=== PATIENT | female | born 1950 | race Caucasian/White ===

== ENCOUNTER 2020-10-28 09:39 | Outpatient (CLI) | payer MEDICARE, BC, SELFPAY ==
--- NOTE | ~2020-10-28 | MM_ITS ---
EXAMINATION: MM screening michael BI w lauren HISTORY: Screening mammogram, family history of breast cancer in her mother and sister. TECHNIQUE: Craniocaudal and mediolateral oblique 3-D tomosynthesis images were obtained and synthetic 2-D images were generated. CAD analysis was submitted and interpreted. COMPARISON: 05/18/2018, 04/07/2017, 09/23/2015 BREAST PARENCHYMAL COMPOSITION: The breasts are heterogeneously dense, which may obscure small masses . FINDINGS: There is no evidence of suspicious mass, calcification, or architectural distortion to sugg est malignancy in either breast. There has been no suspicious interval change. IMPRESSION: 1. No mammographic evidence of malignancy. 2. Recommend routine screening mammography in one year. BI-RADS Category 1: Negative Reviewed, dictated and finalized at location A.
== END 2020-10-28 09:40 | disposition home or self-care (01) ==
PROVIDERS: PCP Internal Medicine; Visit Provider Obstetrics & Gynecology
DX: Z12.31 Encounter for screening mammogram for malignant neoplasm of breast (principal)
CPT/HCPCS: 77063; 77067

== ENCOUNTER 2024-02-16 09:38 | Outpatient (CLI) | payer MEDICARE, BC, SELFPAY ==
--- NOTE | ~2024-02-16 | MM_ITS ---
EXAMINATION: MM screening michael BI w lauren HISTORY: Screening TECHNIQUE: Craniocaudal and mediolateral oblique 3-D tomosynthesis images were obtained and synthetic 2-D images were generated. CAD analysis was submitted and interpreted. COMPARISON: Comparison to multiple prior studies sequentially, with oldest reviewed study dated 10/2014. BREAST PARENCHYMAL COMPOSITION: Dense: The breasts are heterogeneously dense, which may obscure small masses FINDINGS: There is no evidence of suspicious mass, calcification, or architectural distortion to sugg est malignancy in either breast. There has been no suspicious interval change. IMPRESSION: 1. No mammographic evidence of malignancy. 2. Recommend routine screening mammography in one year. BI-RADS Category 1: Negative Reviewed, dictated and finalized at location [facility] [employer]
--- OUTSIDE RECORDS SUMMARY | 2024-02-16 12:25 | XMS_ITS ---
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 Name Role Phone Alex Alvarez Primary Care Provider Dakota Ocampo [phone] Allergies No Known Allergies REASON FOR VISIT S/p LT bunionectomy Medications Medication SIG (Take, Route, Frequency, Duration) Notes Start Date End Date Status Solifenacin Succinate Active Hydroxychloroquine Sulfate Active Neuriva Active Prevagen Active Fluconazole 150 MG 3 tablets all at onc e Orally once a week for 14 days 06/09/2023 Not-Taking Centrum Adult Active Rosuvastatin Calcium Active Famotidine Active Terbinafine HCl 250 MG 1 tablet Orally O nce a day for 14 days 06/09/2023 Not-Taking Problems Problem Type SNOMED Code ICD Code Onset Dates Problem Status W/U Status Risk Notes Problem 692501079 Hallux valgus, right (M20.11) Active confirmed Problem Acquired hammer toe of right foot (9819414601141 105) Hammertoe of right foot (M20.41) Active confirmed Vital Signs Height 62 in 07/07/2023 Weight 160 lbs 07/07/2023 BMI 29.26 kg/m2 07/07/2023 Encounters Encounter Location Date Provider Diagnosis 1 [facility] [address] [place] [address] 07/07/2023 Dakota Wharton Hallux valgus (acquired), left foot M20.12 ; Hallux valgus, right M20.11 ; Hammertoe of right foot M20.41 ; Onychomycosis B35.1 and Toe pain, right M79.674 Assessments Encounter Date Diagnosis (ICD Code) Assessment Notes Treatment Notes Treatment Clinical Notes Section Notes 07/07/2023 Hallux valgus (acquired), left foot (ICD-10 - M20.12) Although patient still has a signifciant hallux valgus deformity and 2nd hammertoe contracture, she admits overall improvement compared to her initial pre-operative pain. She has virtually no pain when wearing sandals but reports pain mostly when wearing her tennis shoes. I advised her swelling will continue to improve with time but recommended she consider purchasing a 4E width shoe. I discussed additional surgery if she continues to have pain but reminded patient that due to her poor bone quality secondary to RA that Lapiplasty would not be a good option due to risk of nonunion. We could consider lópez arthroplasty but jose is still fairly active. For now I encouraged patient to try wider shoes and resume activities as tolerated. Pt to follow up as needed for this problem. 07/07/2023 Hallux valgus, right (ICD-10 - M20.11) Surgery was discussed but patient advised she may have less than ideal results similar to her LT foot due to limitation of procedures we can perform due to poor bone quality secondary to RA. Patient will hold off on surgery as long as possible. 07/07/2023 Hammertoe of right foot (ICD-10 - M20.41) 07/07/2023 Onychomycosis (ICD-10 - B35.1) Advised no further medication needed at this point but patient should monitor the nail as it grows back and contact our office if any concerns of fungus, otherwise no follow up needed for this condition. 07/07/2023 Toe pain, right (ICD-10 - M79.674) Discussed tx options for bunion pain including conservative and surgical options. Discussed importance of wearing the correct size shoe and avoiding tight shoes. Discussed oral and topical pain meds and shoe orthotics. Discussed option of steroid injection but advised this would provide only temporary relief if the bunion continues to be irritated by shoes. Recommended trying nonsurgical before considering surgery but advised sometimes surgery is necessary to relieve the pain. Pt will consider surgical options and will let us know if she wants to move forward. Plan Of Treatment Treatment Notes Assessment Notes Hallux valgus (acquired), left foot Alth ough patient still has a signifciant hallux valgus deformity and 2nd hammertoe contracture, she admits overall improvement compared to her initial pre-operative pain. She has virtually no pain when wearing sandals but reports pain mostly when wearing her tennis shoes. I advised her swelling will continue to improve with time but recommended she consider purchasing a 4E width shoe. I discussed additional surgery if she continues to have pain but reminded patient that due to her poor bone quality secondary to RA that Lapiplasty would not be a good option due to risk of nonunion. We could consider lópez arthroplasty but jose is still fairly active. For now I encouraged patient to try wider shoes and resume activities as tolerated. Pt to follow up as needed for this problem. Hallux valgus, right Surgery was discuss ed but patient advised she may have less than ideal results similar to her LT foot due to limitation of procedures we can perform due to poor bone quality secondary to RA. Patient will hold off on surgery as long as possible. Onychomycosis Advised no further m edication needed at this point but patient should monitor the nail as it grows back and contact our office if any concerns of fungus, otherwise no follow up needed for this condition. Toe pain, right Discussed tx options for bunion pain including conservative and surgical options. Discussed importance of wearing the correct size shoe and avoiding tight shoes. Discussed oral and topical pain meds and shoe orthotics. Discussed option of steroid injection but advised this would provide only temporary relief if the bunion continues to be irritated by shoes. Recommended trying nonsurgical before considering surgery but advised sometimes surgery is necessary to relieve the pain. Pt will consider surgical options and will let us know if she wants to move forward. Next Appt Details Follow Up: Contact office if condition fails to improve , otherwise RTO PRN with any other concerns, Reason: Progress Notes * Don STEARNSOB: 2 (72 yo F)Acc No.[id number]:07/07/2023 Progress Notes Patient:?Kirsten STEARNS Provider:?Summer Wharton DPM :1950???Age:72 Y???Sex:Female D ate:07/07/2023 Address:[address] [place] [address] Pcp:ME Ewa Subjective: * Chief Complaints: * ???S/p LT bunionectomy * HPI: ???MA assisting with visit::?HPI/Rooming:?Cindy.?Primary reason for visit::?Date of surgery: ?02/09/2023.?Surgery procedures performed: ?Left foot: scarf bunionectomy, Abebe osteotomy of hallux, 2nd toe hammertoe repair by PIPJ arthrodesis, 2nd MPJ open reduction of dislocation, 3rd MPJ capsulotomy.?Pain level: ?Left foot:, she still has some discomfort where her scar is, she rates this as???04/15.? 72 y/o female RTO 5 months s/p LEFT foot scarf bunionectomy. At the last appt the pt was dispensed a gel bunion cushion and advised to continue with PT. . She reports that she still has some discomfort from her sx scar and if she extends the toe it will hurt but the PT definitely helped.? ?Today the pt reports that she does wear this cushion and it is effective at keeping her toes from pressing together uncomfortably but the cushion itself is not the most comfortable, she only wears this with tennis shoes.?? Pt states she still is concerned about her LT 2nd?toe overlapping the 3rd toe, she has tried the toe taping as Dr. Wharton directed, which does help. She also states she continues to have numbness to the distal 3rd toe and she is wondering if this will ever go away.? Patient also RTO for f/u onychomycosis, at the last appt the patient had a total nail avulsion to T5 and was prescribed a two-week course of terbinafine to be followed by a 2-week course of fluconazole.? Today the patient reports that she took both of the medications as directed, which she tolerated well,?and she is having no issues in healing. She still hs a small scab but she expected this. * Medical History:? * Surgical History:?RT leg vas cular sx - venous * Hospitalization/Major Diagno stic Procedure:? * Medications:?TakingPrevagen Neuriva Hydroxychloroquine Sulfate Solifenacin Succinate Rosuvastatin Calcium Centrum Adult Famotidine Taking Prevagen Taking Neuriva Taking Hydroxychloroquine Sulfate Taking Solifenacin Succinate Taking Rosuvastatin Calcium Taking Centrum Adult Taking Famotidine Not-Taking/PRNTerbinafine HCl 250 MG Tablet 1 tablet Orally Once a day Fluconazole 150 MG Tablet 3 tablets all at once Orally once a week Medication List reviewed and reconciled with the patientNot-Taking/PRN Terbinafine HCl 250 MG Tablet 1 tablet Orally Once a day Not-Taking/PRN Fluconazole 150 MG Tablet 3 tablets all at once Orally once a week Medication List reviewed and reconciled with the patient * Allergies:?N.K.D.A.no[Allerg ies Verified] Objective: * Vitals:?Wt:160lbs, Wt-k .57 kg, Ht: 62 in, BMI:29.26Index. * Examination: ???General Examination: ?Constitutional / Appearance: ?No acute distress , Well nourished, Appropriate personal hygiene.?Mental status: ?Cooperative, Oriented to person, place and time, Mood and affect: normal, Judgement and intellect: normal with appropriate response to questions.?Shoes today:?Thong flip flops.?Exam unchanged from prior visit:?RT hallux nail bed appears healed with stable eschar present but no drainage or SOI noted.?? LT foot continues to exhibit hallux valgus with the 2nd toe noted to override both the hallux and 3rd toe.? There is bony prominence noted to the medial 1st MTH with mild erythema and tenderness with palpation.? The scar tissue contracture of the dorsal 2nd MPJ appears more supple compared to prior visits. No pain with palpation of plantar forefoot and no plantar callus noted.?? The RT foot exhibits a severe hallux valgus and 2nd digit hammertoe contracture with erythema noted to dorsal 2nd toe PIPJ but no callus.? There mild tenderness with palpation of the plantar 2nd MPJ..? Assessment: * Assessment: 1.?Hallux valgus (acquired), left foot - M20.12 (Primary)?2.?Hallux valgus, right - M20.11?3.?Hammertoe of right foot - M20.41?4.?Onychomycosis - B35.1?5.?Toe pain, right - M79.674? Plan: * Treatment: 2.?Hallux valgus, right? Notes: Surgery was discussed but patient advised she may have less than ideal results similar to her LT foot due to limitation of procedures we can perform due to poor bone quality secondary to RA. Patient will hold off on surgery as long as possible. ?? 3.?Onychomycosis? Notes: Advised no further medication needed at this point but patient should monitor the nail as it grows back and contact our office if any concerns of fungus, otherwise no follow up needed for this condition. ?? 4.?Toe pain, right? Notes: Discussed tx options for bunion pain including conservative and surgical options. Discussed importance of wearing the correct size shoe and avoiding tight shoes. Discussed oral and topical pain meds and shoe orthotics. Discussed option of steroid injection but advised this would provide only temporary relief if the bunion continues to be irritated by shoes. Recommended trying nonsurgical before considering surgery but advised sometimes surgery is necessary to relieve the pain. Pt will consider surgical options and will let us know if she wants to move forward.?? * Procedure Codes:? * Preventive Medicine:? 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 At the last appt the pt was dispensed a gel bunion cushion and advised to continue with PT. . She reports that she still has some discomfort from her sx scar and if she extends the toe it will hurt but the PT definitely helped. Today the pt reports that she does wear this cushion and it is effective at keeping her toes from pressing together uncomfortably but the cushion itself is not the most comfortable, she only wears this with tennis shoes. Pt states she still is concerned about her LT 2nd toe overlapping the 3rd toe, she has tried the toe taping as Dr. Wharton directed, which does help. She also states she continues to have numbness to the distal 3rd toe and she is wondering if this will ever go away. Patient also RTO for f/u onychomycosis, at the last appt the patient had a total nail avulsion to T5 and was prescribed a two-week course of terbinafine to be followed by a 2-week course of fluconazole. Today the patient reports that she took both of the medications as directed, which she tolerated well, and she is having no issues in healing. She still hs a small scab but she expected this. Pain level: Left foot:, she stil l has some discomfort where her scar is, she rates this as 04/15 Date of surgery: 02/09/2023 AMAIRANI assisting with visit: HPI/Rooming: Cindy Examination Category Sub-Category Detail Notes Category Not es General Examination Mental status: Cooperative, Oriented to person, place and time, Mood and affect: normal, Judgement and intellect: normal with appropriate response to questions Shoes today: Thong flip flops Exam unchanged from prior visit: RT max ux nail bed appears healed with stable eschar present but no drainage or SOI noted. LT foot continues to exhibit hallux valgus with the 2nd toe noted to override both the hallux and 3rd toe. There is bony prominence noted to the medial 1st MTH with mild erythema and tenderness with palpation. The scar tissue contracture of the dorsal 2nd MPJ appears more supple compared to prior visits. No pain with palpation of plantar forefoot and no plantar callus noted. The RT foot exhibits a severe hallux valgus and 2nd digit hammertoe contracture with erythema noted to dorsal 2nd toe PIPJ but no callus. There mild tenderness with palpation of the plantar 2nd MPJ. Constitutional / Appearance: No acute di stress , Well nourished, Appropriate personal hygiene
--- OUTSIDE RECORDS SUMMARY | 2024-02-16 12:26 | XMS_ITS | Patient Health Record ---
Author Organization 1 OF Tom ashford [facility] Address [address] [place] [address] Care Team Providers Care Outsole Caser Name Role Phone Alex Alvarez Primary Care Provider Dakota Ocampo Unavailable Allergies No Known Allergies Reason For Referral No Information Medications Medication SIG (Take, Route, Frequency, Duration) Notes Start Date End Date Status Solifenacin Succinate Active Hydroxychloroquine Sulfate Active Centrum Adult Active Rosuvastatin Calcium Active Neuriva Active Prevagen Active Famotidine Active Fluconazole 150 MG 3 tablets all at onc e Orally once a week for 14 days 06/09/2023 Not-Taking Terbinafine HCl 250 MG 1 tablet Orally O nce a day for 14 days 06/09/2023 Not-Taking Social History Tobacco Use: Social History Observation Description Date Details (start date - stop date) Never Smoker NA - NA Tobacco Use/Smoking Question Answer Notes Are you a nonsmoker Problems Problem Type SNOMED Code ICD Code Onset Dates Problem Status W/U Status Risk Notes Problem [id number] Hallux valgus (acquired), left foot (M20.12) Active confirmed Problem Hallux valgus of left foot (1185531618) Hallux valgus of left foot (M20.12) Active confirmed Problem 905553003 Hallux valgus, right (M20.11) Active confirmed Problem 922862565 Hammer toe of right foot (M20.41) Active confirmed Problem 391299349 Hammer toe of left foot (M20.42) Active confirmed Problem Acquired hammer toe of right foot (4430882769753793) Hammertoe of right foot (M20.41) Active confirmed Problem 6160824304567684 Arthritis of foot, left (M19.072) Active confirmed Problem 9627150997640539 Arthritis of foot, right (M19.071) Active confirmed Problem Acquired left hallux valgus due to metatarsus primus varus (disorder) (34466006985743314) Acquired hallux valgus with metatarsus primus varus of left foot (Q66.212) Active confirmed Problem 13979863784041281 Rheumatoid arthritis involving both feet, unspecified whether rheumatoid factor present (M06.9) Active confirmed Vital Signs Height 62 in 07/07/2023 Weight 160 lbs 07/07/2023 BMI 29.26 kg/m2 07/07/2023 Encounters Encounter Location Date Provider Diagnosis 1 OF Tom Wharton [facility] [address] [place] [id number] 02/23/2023 Christopher Dio Hallux valgus of left foot M20.12 ; Surgical aftercare, musculoskeletal system Z47.89 ; Dislocation of metatarsophalangeal joint of toe, subsequent encounter S93.129D ; Acquired deformity of left toe M20.62 and Hammer toe of left foot M20.42 1 OF Tom Wharton [facility] [address] [place] [id number] 03/02/2023 Christopher Dio Hallux valgus of left foot M20.12 ; Surgical aftercare, musculoskeletal system Z47.89 ; Dislocation of metatarsophalangeal joint of toe, subsequent encounter S93.129D ; Acquired deformity of left toe M20.62 and Hammer toe of left foot M20.42 1 OF Tom Wharton [facility] [address] [place] [id number] 03/17/2023 Christopher Dio Hallux valgus of left foot M20.12 ; Surgical aftercare, musculoskeletal system Z47.89 ; Dislocation of metatarsophalangeal joint of toe, subsequent encounter S93.129D ; Acquired deformity of left toe M20.62 ; Hammer toe of left foot M20.42 ; Onychomycosis B35.1 ; Encounter for long-term (current) use of other medications Z79.899 and Swelling of left foot M79.89 1 OF Tom Newman [facility] [address] [place] [address] 03/21/2023 Dakota Wharton Hallux valgus of left foot M20.12 ; Surgical aftercare, musculoskeletal system Z47.89 ; Dislocation of metatarsophalangeal joint of toe, subsequent encounter S93.129D ; Acquired deformity of left toe M20.62 ; Hammer toe of left foot M20.42 ; Onychomycosis B35.1 ; Encounter for long-term (current) use of other medications Z79.899 and Swelling of left foot M79.89 1 OF Tom Newman [facility] [address] [place] [address] 04/07/2023 Barberophsegundo Wharton Hallux valgus of left foot M20.12 ; Surgical aftercare, musculoskeletal system Z47.89 ; Dislocation of metatarsophalangeal joint of toe, subsequent encounter S93.129D ; Acquired deformity of left toe M20.62 ; Hammer toe of left foot M20.42 ; Foot pain, right M79.671 ; Foot pain, left M79.672 and Hallux valgus (acquired), right foot M20.11 1 OF Trent [facility] [address] [place] [address] 05/09/2023 Dakota Wharton Dislocation of metatarsophalangeal joint of toe, subsequent encounter S93.129D ; Surgical aftercare, musculoskeletal system Z47.89 ; Hammer toe of left foot M20.42 and Hallux valgus (acquired), left foot M20.12 1 OF Trent [facility] [address] [place] [address] 06/09/2023 Dakota Wharton Hallux valgus (acquired), left foot M20.12 ; Surgical aftercare, musculoskeletal system Z47.89 ; Hammer toe of left foot M20.42 and Onychomycosis B35.1 1 OF [facility] [address] [place] [address] 07/07/2023 Dakota Wharton Hallux valgus (acquired), left foot M20.12 ; Hallux valgus, right M20.11 ; Hammertoe of right foot M20.41 ; Onychomycosis B35.1 and Toe pain, right M79.674 1 OF Tom Wharton [facility] [address] [address] 02/21/2023 Dakota Wharton 1 OF Tom Wharton [facility] [address] [facility] [address] [place] [address] 03/16/2023 Dakota Wharton Assessments Encounter Date Diagnosis (ICD Code) Assessment Notes Treatment Notes Treatment Clinical Notes Section Notes 02/23/2023 Hallux valgus of lef t foot (ICD-10 - M20.12) 03/02/2023 Hallux valgus of lef t foot (ICD-10 - M20.12) 03/17/2023 Hallux valgus of lef t foot (ICD-10 - M20.12) 03/21/2023 Hallux valgus of lef t foot (ICD-10 - M20.12) 04/07/2023 Hallux valgus of lef t foot (ICD-10 - M20.12) 05/09/2023 Dislocation of metatarsophalangeal joint of toe, subsequent encounter (ICD-10 - S93.129D) 06/09/2023 Hallux valgus (acquired), left foot (ICD-10 - M20.12) Discussed the recurrence of the hallux valgus deformity and bunion cushion with gel payable manager was dispensed to pt today and pt was advised to experiment with positioning the cushion to find the position that works best. Pt advised to continue with PT, but to remove cushion when at PT. Discussed potential need for additional surgery if the condition continues to bother her but reminded patient of her poor bone quality that would limit the options as far as an osteotomy is concerned. Recommended surgery only as a last resort. Pt will f/u with the office in 1 month. 07/07/2023 Hallux valgus (acquired), left foot (ICD-10 [...] Hammertoe of right foot (ICD-10 - M20.41) 06/09/2023 Surgical aftercare, musculoskeletal system (ICD-10 - Z47.89) 06/09/2023 Hammer toe of left foot (ICD-10 - M20.42) 04/07/2023 Dislocation of metatarsophalangeal joint of toe, subsequent encounter (ICD-10 - S93.129D) 05/09/2023 Surgical aftercare, musculoskeletal system (ICD-10 - Z47.89) Pt advised that non-sx options include physical therapy, but was also advised that another procedure may be necessary if physical therapy fails to provide relief. Pt was advised that swelling will take time to go down, especially since she is unable to wear compression stockings. Pt was given order for PT. Pt was recommended Dr. Villalpando's bunion cushion with spacer, although these will need to be ordered. For the swelling, forefoot compression sleeve was dispensed. 05/09/2023 Hammer toe of left foot (ICD-10 - M20.42) 04/07/2023 Surgical aftercare, musculoskeletal system (ICD-10 - Z47.89) Patient was advised that her swelling will continue to go down with time but she will still have her lump feeling for some time in the ball of the foot. She can gradually increase her activity as tolerated but avoid any high impact activity. f/u in 4 weeks 03/17/2023 Dislocation of metatarsophalangeal joint of toe, subsequent encounter (ICD-10 - S93.129D) 03/17/2023 Surgical aftercare, musculoskeletal system (ICD-10 - Z47.89) 03/21/2023 Surgical aftercare, musculoskeletal system (ICD-10 - Z47.89) 03/02/2023 Surgical aftercare, musculoskeletal system (ICD-10 - Z47.89) Both surgical pins were removed from the surgical site. Pt was advised to wait a few days before showering. Pt was advised to allow the bandage strips to come off on their own. Pt advised that post surgical swelling will reduce overtime. Bandage was applied to openings from which pins were removed. Surgical shoe dispensed today. Patient advised she can wear surgical shoe or cam walker boot but must wear one or the other with all WB activity. Continue to RICE. She may d/c the naproxen if no pain. f/u in 2 weeks 02/23/2023 Surgical aftercare, musculoskeletal system (ICD-10 - Z47.89) Pt's x-rays were compared to her last visit today, and I informed her she appears to have a little less edema than last time. All of pt's sutures were removed today and steri-strips were placed. Pt's LT 2nd/3rd toes were also dressed with DSD and bandaids. 1/2 felt padding placed in posterior 3/4 of her CAM walker boot to offload the forefoot which patient reported immediately felt better to her. Pt advised to continue offloading in her boot as much as possible. Pt advised that she cannot get her foot wet until her pins are removed but may apply a light bandage around the toes to change periodically. Pt also advised she may apply lotion to the area around her incision site and abx ointment like Neosporin around the tips of the pins when changing her dressing. Pt will f/u on 03/02/2023. 02/23/2023 Dislocation of metatarsophalangeal joint of toe, subsequent encounter (ICD-10 - S93.129D) 03/17/2023 Acquired deformity o f left toe (ICD-10 - M20.62) 03/02/2023 Dislocation of metatarsophalangeal joint of toe, subsequent encounter (ICD-10 - S93.129D) 03/21/2023 Dislocation of metatarsophalangeal joint of toe, subsequent encounter (ICD-10 - S93.129D) 04/07/2023 Acquired deformity o f left toe (ICD-10 - M20.62) 05/09/2023 Hallux valgus (acquired), left foot (ICD-10 - M20.12) 06/09/2023 Onychomycosis (ICD-1 0 - B35.1) Pt was advised that fungal infection is likely too dense to be penetrated by medication. Pt was advised that infection can likely only be cleared by removal of the nail followed by 2 week treatment of fluconazole, and then 2 week treatment of terbinafine. Pt will f/u with the office as scheduled for P/O. 07/07/2023 Onychomycosis (ICD-1 0 - B35.1) Advised no further medication needed [...] know if she wants to move forward. 04/07/2023 Hammer toe of left foot (ICD-10 - M20.42) 03/21/2023 Acquired deformity o f left toe (ICD-10 - M20.62) 03/02/2023 Acquired deformity o f left toe (ICD-10 - M20.62) 03/17/2023 Hammer toe of left foot (ICD-10 - M20.42) Evaluation today included a review of medical history, review of systems, discussion of exam findings, and review of diagnoses and treatment options. Recommended a possible in-office tenotomy of the 3rd digit to keep the digit from tash and to lessen the pain the pt is experiencing. Discussed the procedure and healing times, adressed all pt questions and concerns, and let her know that she will not be able to get the foot wet until after her F/U appt next week. Pt agreed to proceed with a tenotomy today in-office/ Pt is to continue wearing her surgical shoe with all WB. 02/23/2023 Acquired deformity o f left toe (ICD-10 - M20.62) 02/23/2023 Hammer toe of left foot (ICD-10 - M20.42) 03/17/2023 Onychomycosis (ICD-1 0 - B35.1) I reviewed the diagnosis and treatment plan with the patient and advised the condition seems not to be improving. I recommended switching to oral terbinafine, taken one week per month for an additional 3 months 03/02/2023 Hammer toe of left foot (ICD-10 - M20.42) 03/21/2023 Hammer toe of left foot (ICD-10 - M20.42) Pt's incision site was cleansed with alcohol today. Pt advised to keep her steri-strips on and allow them to fall off over time. Pt dispensed compression socks today. Pt also advised to purchase supportive shoes with a stiffer sole and bring them to her next f/u visit on 04/07/2023. 04/07/2023 Foot pain, right (ICD-10 - M79.671) 04/07/2023 Foot pain, left (ICD-10 - M79.672) 03/21/2023 Onychomycosis (ICD-1 0 - B35.1) 03/17/2023 Encounter for long-term (current) use of other medications (ICD-10 - Z79.899) 03/17/2023 Swelling of left lauren t (ICD-10 - M79.89) 03/21/2023 Encounter for long-term (current) use of other medications (ICD-10 - Z79.899) 04/07/2023 Hallux valgus (acquired), right foot (ICD-10 - M20.11) Patient's left foot bunion is progressing well but she still has a significant bunion on the RT foot that will eventually need surgery. Until she can have surgery of the RT foot I recommended she try a much wider shoe than she is currently wearing. Patient was counseled on brands that carry wider shoe styles, such as [employer] shoes. Patient's feet were measured using a [facility] device, I reccomended a 4E width to accomodate the RT foot bunion. Pt was reminded that even with bunion surgery the width of her foot could only be decreased so much, and she still has a wide foot and her LT foot would benefit from a wider shoe as well. Pt expressed understanding and plans to buy a wider shoe. Pt was advised to wear her sx shoe or to wear her current shoes if they are tolerable until she can purchase wider shoes. Pt was given a [employer] store coupon. Pt was also shown gel bunion cushions that she could wear in the meantime for the discomfort on her medial hallux MPJ's. 03/21/2023 Swelling of left lauren t (ICD-10 - M79.89) 06/09/2023 Other Plan Of Treatment No Information Insurance Providers Payer Name Payer Address Payer Phone Subscriber Number Group Number Insured Name Patient Relationship to Insured Coverage Start Date Coverage End Date Medicare [address] [facility] [place] [id number] Kirsten Montejo Self - patient is the insured [facility] [address] [address] [place], [place] [id number] Kirsten Montejo Self - patient is the insured Medical (General) History Medical History History ICD Code arthritis, hyperlipidemia, r heumatoid arthritis, vein problems, Lupus- cutaneous Surgical History Surgery Date(Month/Year) RT leg vascular sx - venous
--- OUTSIDE RECORDS SUMMARY | 2024-02-16 12:26 | XMS_ITS ---
Author Organization 1 OF Tom ashford [facility] Address [address] [facility] [address] [place] [address] Care Team Providers Care Telephone Lineman Name Role Phone Alex Alvarez Primary Care Provider Dakota Ocampo Unavailable Allergies No Known Allergies REASON FOR VISIT LT foot scarf bunionectomy Medications Medication SIG (Take, Route, Frequency, Duration) Notes Start Date End Date Status Solifenacin Succinate Active Hydroxychloroquine Sulfate Active Famotidine Active Rosuvastatin Calcium Active Centrum Adult Active Neuriva Active Prevagen Active Terbinafine HCl 250 MG 1 tablet Orally O nce a day for 14 days 06/09/2023 Active Fluconazole 150 MG 3 tablets all at onc e Orally once a week for 14 days 06/09/2023 Active Vital Signs Height 62 in 06/09/2023 Weight 160 lbs 06/09/2023 BMI 29.26 kg/m2 06/09/2023 Encounters Encounter Location Date Provider Diagnosis 1 OF Tom Wharton [facility] [address] [id number] 06/09/2023 Dakota Wharton Hallux valgus (acquired), left foot M20.12 ; Surgical aftercare, musculoskeletal system Z47.89 ; Hammer toe of left foot M20.42 and Onychomycosis B35.1 Assessments Encounter Date Diagnosis (ICD Code) Assessment Notes Treatment Notes Treatment Clinical Notes Section Notes 06/09/2023 Hallux valgus (acquired), left foot (ICD-10 - M20.12) Discussed the recurrence of the hallux valgus deformity and bunion cushion with gel crown buffer was dispensed to pt today and pt [...] f/u with the office in 1 month. 06/09/2023 Surgical aftercare, musculoskeletal system (ICD-10 - Z47.89) 06/09/2023 Hammer toe of left foot (ICD-10 - M20.42) 06/09/2023 Onychomycosis (ICD-10 - B35.1) Pt was advised that fungal infection is likely too dense to be penetrated by medication. Pt was advised that infection can likely only be cleared by removal of the nail followed by 2 week treatment of fluconazole, and then 2 week treatment of terbinafine. Pt will f/u with the office as scheduled for P/O. 06/09/2023 Other Plan Of Treatment Medication Medication Name Sig Start Date Stop Date Notes Terbinafine HCl 250 MG 1 tablet Orally O nce a day for 14 days 06/09/2023 Fluconazole 150 MG 3 tablets all at onc e Orally once a week for 14 days 06/09/2023 Treatment Notes Assessment Notes Hallux valgus (acquired), left foot Disc ussed the recurrence of the hallux valgus deformity and bunion cushion with gel crown buffer was dispensed to pt today and pt [...] f/u with the office in 1 month. Onychomycosis Pt was advised that fungal infection is likely too dense to be penetrated by medication. Pt was advised that infection can likely only be cleared by removal of the nail followed by 2 week treatment of fluconazole, and then 2 week treatment of terbinafine. Pt will f/u with the office as scheduled for P/O. Next Appt Details Follow Up: 4 Weeks, Reason: Procedure Notes * Category Sub-Category Detail Notes NAIL PROCEDURES: Nail avulsion (35356): Discusse d procedure and associated recovery period as well as potential risks and complications including, but not limited to recurrence of ingrown toenail, infection, worsening of condition, loss of entire toenail, loss of digit. Advised potential need for resection hypertrophic periungual tissue to help prevent recurrence of the condition. No guarantees given. Patient agreed to proceed with procedure consisting of: total nail avulsion of: T5 . Consent form reviewed and signed by patient / guardian. Local anesthesia obtained with 4cc , 50/50 mixture, 0.25% marcaine plain, 1% lidocaine plain., Aseptic prep of the toe(s) performed with betadine and following confirmation of anesthesia, , Avulsion procedure performed utilizing sterile instrumentation and atraumatic technique with resection of any hypertrophic granulation tissue as necessary. , The wound was then irrigated with betadine. Bacitracin ointment and DSD was applied to the wound and post-op instructions were dispensed and discussed. STERILE TRAY & INSTRUMENTS Utilization o f sterile tray and instrumentation along with aseptic technique. (A4550) Progress Notes * Don STEARNSOB: 2 (72 yo F)Acc No.[id number]:06/09/2023 Progress Note Patient:Kirsten COX Provider:David Wharton DPM :1950???Age:72 Y???Sex:Female D ate:06/09/2023 Address:[address] [place] [address] Pcp:ME Ewa Subjective: * Chief Complaints: * ???LT foot scarf bunionectom y * HPI: ???MA assisting with visit::?HPI/Rooming:?Anusha.?Primary reason for visit::?Date of surgery: ?02/09/2023.?Surgery procedures performed: ?Left foot: scarf bunionectomy, Abebe osteotomy of hallux, 2nd toe hammertoe repair by PIPJ arthrodesis, 2nd MPJ open reduction of dislocation, 3rd MPJ capsulotomy.?Pain level: ?Left foot: 3/10?at worst, 0/10?today.?72 y/o female RTO 17 weeks s/p LEFT foot surgery. At last visit pt was given order for PT and a gel bunion cushion with a spacer was supposed to be ordered. Pt also had compression sleeve dispensed. Pt reports she thinks that physical therapy has helped with the pain and she will have her 8th session today. Pt rpeorts she has pain when the foot swells, and when she is on the foot more. Pt reports she thinks the bunion cushion helps to keep the scar from getting irritated. Pt reports she was wondering about the other bunion cushion that was supposed to be ordered. Pt reports she wears the compression sleeve at home and likes it, but sometimes it gets too tight so she has to remove it. Pt also RTO for f/u of nail fungus. At last visit pt was given refill for terbinafine. Today the pt reports there has not been much improvement.? ?She denies any ASE with the medication. * Medical History:? * Medications:?TakingPrevagen Neuriva Hydroxychloroquine Sulfate Solifenacin Succinate Rosuvastatin Calcium Centrum Adult Famotidine Taking Prevagen Taking Neuriva Taking Hydroxychloroquine Sulfate Taking Solifenacin Succinate Taking Rosuvastatin Calcium Taking Centrum Adult Taking Famotidine DiscontinuedTerbinafine HCl 250 MG Tablet 1 tablet Orally once daily for 7 days in a row, then stop. Repeat 1 week of every month as directed Medication List reviewed and reconciled with the patientDiscontinued Terbinafine HCl 250 MG Tablet 1 tablet Orally once daily for 7 days in a row, then stop. Repeat 1 week of every month as directed Medication List reviewed and reconciled with the patient * Allergies:?N.K.D.A.no[Allerg ies Verified] Objective: * Vitals:?Wt:160lbs, Wt-k .57 kg, Ht: 62 in, BMI:29.26Index. * Examination: ???General Examination: ?Constitutional / Appearance: ?No acute distress , Well nourished, Appropriate personal hygiene.?Mental status: ?Cooperative, Oriented to person, place and time, Mood and affect: normal, Judgement and intellect: normal with appropriate response to questions.?Shoes today:?tennis shoe.?Exam unchanged from prior visit:?The LT 2nd toe continues to exhibit a mild dorsal contracture that overrides both the hallux and 3rd toe.? There does appear to be less scar tissue contracture at the dorsal 2nd MPJ but still some limited plantarflexion is noted due to contracture.? There remains a bony prominence at the medial 1st MPJ w/ mild erythema and lateral contracture of the hallux. No pain or crepitus with ROM of the hallux. The RT hallux nail plate continues to exhibit evidence of onychomycosis with longitudinal spikes of nail fungus at the medial and lateral margins of the nail plate.? Remaining nails of both feet appear clear of fungus..?Diagnostic Studies: : ?X-rays of left lower extremity:?3 views of left foot: , Fixation appears stable with no change in position, evidence of loosening or fracture., No change in alignment of osteotomy is noted, Bone consolidation appears excellent. Hallux valgus with bony prominence of the medial 1st MTH is noted. , Otherwise no other acute changes compared to prior x-rays.? Assessment: * Assessment: 1.?Hallux valgus (acquired), left foot - M20.12?2.?Surgical aftercare, musculoskeletal system - Z47.89 (Primary)?3.?Hammer toe of left foot - M20.42?4.?Onychomycosis - B35.1? Plan: * Treatment: 2.?Onychomycosis? Start Terbinafine HCl Tablet, 250 MG, 1 tablet, Orally, Once a day, 14 days, 14 Tablet, Refills 0;?Start Fluconazole Tablet, 150 MG, 3 tablets all at once, Orally, once a week, 14 days, 6, Refills 0.?? Notes: Pt was advised that fungal infection is likely too dense to be penetrated by medication. Pt was advised that infection can likely only be cleared by removal of the nail followed by 2 week treatment of fluconazole, and then 2 week treatment of terbinafine. Pt will f/u with the office as scheduled for P/O. ?? * Procedures:?NAIL PROCEDURES::?Nail avulsion (48441): ?Discussed procedure and associated recovery period as well as potential risks and complications including, but not limited to recurrence of ingrown toenail, infection, worsening of condition, loss of entire toenail, loss of digit. Advised potential need for resection hypertrophic periungual tissue to help prevent recurrence of the condition. No guarantees given. Patient agreed to proceed with procedure consisting of:? total nail avulsion of: T5?. Consent form reviewed and signed by patient / guardian. Local anesthesia obtained with 4cc , 50/50 mixture, 0.25% marcaine plain, 1% lidocaine plain., Aseptic prep of the toe(s) performed with betadine and following confirmation of anesthesia, , Avulsion procedure performed utilizing sterile instrumentation and atraumatic technique with resection of any hypertrophic granulation tissue as necessary. , The wound was then irrigated with betadine. Bacitracin ointment and DSD was applied to the wound and post-op instructions were dispensed and discussed..?STERILE TRAY & INSTRUMENTS?Utilization of sterile tray and instrumentation along with aseptic technique. (A4550).? * Procedure Codes:?27677 X-RAY FOOT (3 views), [place]: [place] [address] REMOVAL OF NAIL PLATE, Modifiers: T5 * Follow Up:?4 Weeks * Images: Drawin R T foot photo * Sign off status: Completed true * Provider:?Summer Wharton DPM Date:?0 06/09/2023 Generated for Saira martinez/Sofia/Tomeritting on:?02/16/2024 12:25 PM DELIVERY PROFESSIONAL History and Physical Notes * HPI (History of Present Illness) Category Sub-Category Detail Notes Category Not es Primary reason for visit: Surgery procedures performed: Left foot: scarf bunionectomy, Abebe osteotomy of hallux, 2nd toe hammertoe repair by PIPJ arthrodesis, 2nd MPJ open reduction of dislocation, 3rd MPJ capsulotomy 72 y/o female RTO 17 weeks s/p LEFT foot surgery. At last visit pt was given order for PT and a gel bunion cushion with a spacer was supposed to be ordered. Pt also had compression sleeve dispensed. Pt reports she thinks that physical therapy has helped with the pain and she will have her 8th session today. Pt rpeorts she has pain when the foot swells, and when she is on the foot more. Pt reports she thinks the bunion cushion helps to keep the scar from getting irritated. Pt reports she was wondering about the other bunion cushion that was supposed to be ordered. Pt reports she wears the compression sleeve at home and likes it, but sometimes it gets too tight so she has to remove it. Pt also RTO for f/u of nail fungus. At last visit pt was given refill for terbinafine. Today the pt reports there has not been much improvement. She denies any ASE with the medication. Pain level: Left foot: 3/10 at w orst, 0/10 today Date of surgery: 02/09/2023 MA assisting with visit: HPI/Rooming: Anusha Examination Category Sub-Category Detail Notes Category Not es General Examination Mental status: Cooperative, Oriented to person, place and time, Mood and affect: normal, Judgement and intellect: normal with appropriate response to questions Shoes today: tennis shoe Exam unchanged from prior visit: The LT 2nd toe continues to exhibit a mild dorsal contracture that overrides both the hallux and 3rd toe. There does appear to be less scar tissue contracture at the dorsal 2nd MPJ but still some limited plantarflexion is noted due to contracture. There remains a bony prominence at the medial 1st MPJ w/ mild erythema and lateral contracture of the hallux. No pain or crepitus with ROM of the hallux. The RT hallux nail plate continues to exhibit evidence of onychomycosis with longitudinal spikes of nail fungus at the medial and lateral margins of the nail plate. Remaining nails of both feet appear clear of fungus. Constitutional / Appearance: No acute di stress , Well nourished, Appropriate personal hygiene Diagnostic Studies: X-rays of left lower extremity: 3 views of left foot: , Fixation appears stable with no change in position, evidence of loosening or fracture., No change in alignment of osteotomy is noted, Bone consolidation appears excellent. Hallux valgus with bony prominence of the medial 1st MTH is noted. , Otherwise no other acute changes compared to prior x-rays
--- OUTSIDE RECORDS SUMMARY | 2024-02-16 12:26 | XMS_ITS | Data Portability ---
Author Organization [facility] KAITLINKatie Catarina Address [address] [place] [address] Care Team Providers Care Knife Machine Operator Name Role Phone MORIS WONG Primary Care Provider [phone] Assessment Encounter Date Assessment Date Assessment LastModified by Organization Details LastModified Time 08/15/2023 08/15/2023 continue current therapy orthopedic referral diagnosis and assessment and plan discussed and questions referable those diagnosis discussed follow up with me in 4-6 months. Obtain old records to complete database for screenings and immunizations Not available 09/09/2023 22:20:27 01/31/2024 01/31/2024 healthy lifestyl e care instructions urinary incontinence continue with her medication dyslipidemia rosuvastatin. Rheumatoid arthritis hydroxychloroquine with meloxicam. GERD famotidine. Obtain Cologuard report obtain mammogram report follow up with me in 4-6 months continue current therapy [email or web address] Not available 02/03/2024 13:21:21 Plan of Treatment Reminders Order Date Submit Date Provider Last Modified By Organization Details Last Modified Time Details Appointments ANY 15 2024 10:00A Emerita Wong MD Not available Not available Not available Lab CBC w/ auto diff 2023 024 [facility], [address] [facility], [address], [place], [address], 02/15/2024 06:47:07 lipid panel, serum 2023 024 [facility], [address] [facility], [address], [place], [address], 02/15/2024 06:47:05 CMP, serum or plasma 2023 [facility], [address], [address], [place], [address], 02/15/2024 06:47:06 Referral orthopedi c surgeon referral 2023 024 MA[facility]OL Walker MD, [address] [facility], [place], [address], 09/05/2023 07:54:10 Procedures None recorded. Surgeries None recorded. Imaging MAMMO, screening , digital, bilateral 2023 [facility], [address] [address], [place], [address], 02/16/2024 11:16:52 Medication Orders None recorded. Patient TargetsNo targets recorded. Patient Instructions Encounter Date Encounter Id Patient Instructions Last Modified By Organization Details Last Modified Time 01/31/2024 [id number] A healthy lifestyle: care instructions [email or web address] Not available 01/31/2024 12:16:08 Reason for Referral Orthopedic Surgeon Referral for Pain of left shoulder joint Referring Physician: Moris Wong, Internal Medicine, Encounter Date: 08/15/2023 Results Created Date Observation Date Name Description Value Unit Range Abnormal Flag Note LastModifiedBy Organization Detail LastModifiedTime 02/02/2005/18/2018 jeni VIRGEN digit al, bilat eral No observ ation record ed. [facility] [address] [facility] [address], [address], 02/05/2024 11:06:14 02/16/2002/16/2024 jeni VIRGEN digit al, bilat eral No observ ation record ed. [facility] [address], [place], [address], 02/16/2024 11:16:52 02/16/2002/16/2024 MAMMO , scree derek, digit al, bilat eral No observ ation record ed. [address], [place], [address], 02/16/2024 12:15:28 Result Notes None recorded. Problems Name Problem SNOMED Code Status Onset Date Resolution Date Notes Provider Name and Address Organization Details Recorded Time Pain of left shoulder joint 6177086483966 9109 Active 2023 Pascual Marsh MA null, [place] - [facility] 4 10:27:44 Hyperlipide lenny 20629593 Active 2023 Moris Wong MD Attn: Jake treviño,[address] [facility], [place], [address], [place] - [facility] 4 22:19:42 Rheumatoid arthritis 62568607 Active 2023 Moris Wong MD Attn: Jake treviño,[address] [place], [address], [place] [facility] 4 22:19:43 Urinary incontinenc e 780580847 Active 2023 Moris Wong MD Attn: Jake treviño,[address] [facility], [place], [address], [place] - [facility] 4 22:19:44 Gastroesoph ageal reflux disease without esophagitis 143091474 Active 2023 Moris Wong MD Attn: Jake treviño,[address] [place], [address], [place] - [facility] 13:19:54 Problem Notes None recorded. Procedures Surgical History None recorded. Imaging Results Imaging Date Name Status LastModified by Organiz ation Details LastModified Time 05/18/2018 MAMMO, screening, digital, bilateral completed [address] [facility] [address], [place], [address], 02/05/2024 11:06:14 02/16/2024 MAMMO, screening, digital, bilateral active [address] [facility] [address], [place], [address], 02/16/2024 11:16:52 02/16/2024 MAMMO, screening, digital, bilateral active [facility] [address], [place], [address], 02/16/2024 12:15:28 Procedure Notes None recorded. Medical Equipment None Reported. Allergies No known drug allergies Medications Name Sig Start Date Stop Date Status Note LastModified by Organization Details LastModified Time azithromyci n 250 mg tablet 06/13 completed Not Available Not Available Not Available fluconazole 150 mg tablet TAKE 3 TABLETS BY MOUTH ALL AT ONCE ONCE A WEEK 08/14 completed Not Available Not Available Not Available hydrocodone 5 mg-acetamin ophen 325 mg tablet TAKE 1 TO 2 TABLETS BY MOUTH EVERY 6 HOURS AFTER SURGERY NEEDED FOR MODERATE PAIN AFTER SURGERY OR PAIN 06/13 completed Not Available Not Available Not Available meloxicam 15 mg tablet TAKE 1 TABLET BY MOUTH EVERY DAY active Not Available Not Available No t Available famotidine 40 mg tablet TAKE 1 TABLET BY MOUTH ONCE DAILY active Not Available Not Available No t Available doxycycline monohydrate 100 mg tablet TAKE 1 TABLET BY MOUTH EVERY 12 HOURS FOR 7 DAYS 06/13 completed Not Available Not Available Not Available mycophenola te mofetil 500 mg tablet TAKE 2 TABLETS BY MOUTH TWICE DAILY 08/14 completed Not Available Not Available Not Available terbinafine HCl 250 mg tablet TAKE 1 TABLET BY MOUTH DAILY FOR 14 DAYS 08/14 completed Not Available Not Available Not Available methotrexat e sodium 2.5 mg tablet 08/14 completed Not Available Not Available Not Available hydroxychlo roquine 200 mg tablet active Not Available Not Available No t Available naproxen 500 mg tablet TAKE 1 TABLET BY MOUTH EVERY 12 HOURS FOR AT LEAST 14 DAYS AFTER SURGERY 08/14 completed Not Available Not Available Not Available rosuvastati n 20 mg tablet TAKE 1 TABLET DAILY active Not Available Not Available No t Available solifenacin 10 mg tablet TAKE 1 TABLET DAILY active Not Available Not Available No t Available aspirin PRN active Not Available Not Avail able Not Available Vitals Date Recorded Body height Body mass index (BMI) Body weight Heart rate Oxygen saturation Oxygen saturation in Arterial blood by Pulse oximetry Systolic blood pressure Diastolic blood pressure Provider Name and Address Organization Details Last Updated DateTime 06/11/202 4 157.48 cm 30.3 kg/m2 13835.6 1 g 87 /min 97 % 97 % 118 mm[Hg] 72 mm[Hg] Fina Frias MA [facility] 4 09:56:09 Date Recorded Body height Provider Name an d Address Organization Details Last Updated DateTime 01/31/2024 157.48 cm Jerilyn LozanoAMAIRANI [facility] 01/31/2024 11:02:03 Date Recorded Body mass index (BMI) Body weight Heart rate Oxygen saturation Oxygen saturation in Arterial blood by Pulse oximetry Systolic blood pressure Diastolic blood pressure Provider Name and Address Organization Details Last Updated DateTime 4 30.7 kg/m2 07135.5 2 g 90 /min 96 % 96 % 118 mm[Hg] 70 mm[Hg] Surekha Hunter MA [facility] 4 11:15:11 Social History Question Answer Notes LastModified by Organizat ion Details LastModified Time Tobacco Smoking Status Never Smoker Fina Frias MA null, [facility] 08/15/2023 09:53:57 Do You Have An Advance Directive? No Information n ot available 01/31/2024 What Is Your Level Of Alcohol Consumption? Occasional Information not available 08/15/2023 Are You Blind Or Do You Have Difficulty Seeing? No Information n ot available 08/15/2023 In The 14 Days Before Symptom Onset, Have You Had Close Contact With A Laboratory-confirm ed COVID-19 While That Case Was Ill? No Information n ot available 01/31/2024 In The 14 Days Before Symptom Onset, Have You Had Close Contact With A Person Who Is Under Investigation For COVID-19 While That Person Was Ill? No Information not available 01/31/2024 Have You Been To An Area Known To Be High Risk For COVID-19? No Information not available 01/31/2024 Are You Currently Employed? No Information not available 01/31/2024 Are You Deaf Or Do You Have Serious Difficulty Hearing? No Information not available 08/15/2023 What Type Of Diet Are You Following? REGULAR Information n ot available 01/31/2024 Are There Any Guns Present In Your Home? No Information not available 01/31/2024 What Was The Date Of Your Most Recent Tobacco Screening? 01/31/2024 Information not available 01/31/2024 What Is Your Relationship Status? Information not available 08/15/2023 Do You Use Your Seat Belt Or Car Seat Routinely? Yes Information not available 01/31/2024 Do You Have Smoke And Carbon Monoxide Detectors In Your Home? Yes Information not available 01/31/2024 Do You Use Any Illicit Or Recreational Drugs? No Information not available 01/31/2024 Do You Use Sunscreen Routinely? No Information not available 01/31/2024 Sex: Female Functional Status Question Answer Note LastModified by Organization D etails LastModified Time Are you able to care for yourself? Yes Information n ot available 08/15/2023 Mental Status None recorded. Family History Nothing Reported. Medical History Condition Response Kidney or Bladder Problems Y High Cholesterol Y Gynecological HistoryNo gynecological history recorded. Obstetrics History GPAL:G 0 P 0 0 0 0 Past Encounters Encounter ID Performer Location Encounter Start Date Encounter Closed Date Diagnosis/Indication Diagnosis SNOMED-CT Code Diagnosis ICD10 Code [id number] Moris Wong MD [facility]) [address] [place] [address] 08/15/2023 09:43:15 08/15/2023 10:36:32 Pain of left shoulder joint 4867371807 3191521 M25.512 Hyperlipidemia 45399217 E78.5 Rheumatoid arthritis 698 45157 M06.9 Urinary incontinence 165 911273 R32 History of cerebrovascular accident 306154975 Z86.73 [id number] Moris Wong MD [facility]) [address] [place] [address] 01/31/2024 11:00:19 01/31/2024 11:54:06 Body mass index 30+ - obesity 013309676 Z68.30 Obesity 062806784 E66.9 Screening mammography 24 791211 Z12.31 Hyperlipidemia 43234988 E78.5 Long-term drug therapy 260415804 Z79.891 Health Concerns Section Related Observation LastModified by Organization Detai ls LastModified Time None Recorded Concern Status LastModified by Organization Details LastModified Time None Recorded Advance Directives Directive N: Payers Encounter Date Sequence Insurance Name Policy Number Policy Patel Covered Member ID Patel Member ID Guarantor Name 08/15/2023 1 [place] Kirsten Cholevik [id number] Kirsten Cholevik 08/15/2023 2 [place] [id number] Kirsten Cholevik [id number] Kirsten Cholevik 01/31/2024 1 [place] Kirsten Cholevik [id number] Kirsten Cholevik 01/31/2024 2 [place] [id number] Kirsten Cholevik [id number] Kirsten Cholevik Notes Date Note Type Note Provider Name and Address Organization Details Recorded Time 08/15/2023 text/html 73-year-old with history of hyperlipidemia stroke and rheumatoid arthritisshe has been taking her rosuvastatin without any side effects trying to follow a low-fat diet. She has been taking her medications from rheumatology as well and seemed to be stable does have some urinary incontinence and that has been responsive to her medication and she has had some pain in her left shoulder for several months now no trauma or surgeries or above her head Moris Wong MD Attn: [address] [place], [address], [facility] 09/09/2023 22:20:46 01/31/2024 text/html urinary incontin ence is doing fine. Dyslipidemia taking rosuvastatin without any problems rheumatoid arthritis relatively stable GERD no nausea no vomiting no heartburn Moris Wong MD Attn: [address] [facility], [place], [address], [place] 02/03/2024 13:21:44 OBGyn Episode No OBEpisode recorded.
--- OUTSIDE RECORDS SUMMARY | 2024-02-16 12:26 | XMS_ITS | Continuity of Care Document ---
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 Rheumatoid arthritis hydroxychloroquine with meloxicam. GERD famotidine. Obtain Cologuard report obtain mammogram report follow up with me in 4-6 months continue current therapy Not available 02/03/2024 13:21:21 Plan of Treatment Reminders Order Date Submit Date Provider Last Modified By Organization Details Last Modified Time Details Appointments ANY 15 2024 10:00A Emerita Wong MD Not available Not available Not available Lab CBC w/ auto diff 2023 024 [facility], [address] [facility] [address], [place], [address], 02/15/2024 06:47:07 lipid panel, serum 2023 024 [facility], [address] [facility] [address], [address], [place], [address], 02/15/2024 06:47:05 CMP, serum or plasma 2023 024 [facility], [address] [facility] [address], [address], [place], [address], 02/15/2024 06:47:06 Referral None recorded. Procedures None recorded. Surgeries None recorded. Imaging MAMMO, screening , digital, bilateral 2023 024 [facility], [address], [place], [address], 02/16/2024 11:16:52 Medication Orders None recorded. Patient TargetsNo targets recorded. Patient Instructions Encounter Date Encounter Id Patient Instructions Last Modified By Organization Details Last Modified Time 01/31/2024 [id number] A healthy lifestyle: care instructions [email or web address] Not available 01/31/2024 12:16:08 Reason for Referral None Reported. Results Created Date Observation Date Name Description Value Unit Range Abnormal Flag Note LastModifiedBy Organization Detail LastModifiedTime 02/02/20 24 05/18/2018 MAMMO , scree derek, digit al, bilat eral No observ ation record ed. [address] [facility], [place], [address], 02/05/2024 11:06:14 02/16/20 24 02/16/2024 MAMMO , scree derek, digit al, bilat eral No observ ation record ed. [address] [address], [place], [address], 02/16/2024 11:16:52 02/16/20 24 02/16/2024 MAMMO , scree derek, digit al, bilat eral No observ ation record ed. [address] [facility], [place], [address], 02/16/2024 12:15:28 Result Notes None recorded. Problems Name Problem SNOMED Code Status Onset Date Resolution Date Notes Provider Name and Address Organization Details Recorded Time Pain of left shoulder joint 1196367169914 9109 Active 2023 Pascual Marsh MA [facility], [place] - [facility] 10:27:44 Hyperlipide lenny 73728589 Active 2023 Moris Wong MD Attn: Jake treviño,[address] [facility], [place], [address], [place] - [facility] 4 22:19:42 Rheumatoid arthritis 85686794 Active 2023 Moris Wong MD Attn: Jake treviño,[address] [facility], [place], [address], [place] [facility] 4 22:19:43 Urinary incontinenc e 345776062 Active 2023 Moris Wong MD Attn: Jake treviño,[address] [facility], [place], [address], [place] [facility] 4 22:19:44 Gastroesoph ageal reflux disease without esophagitis 362303490 Active 2023 Moris Wong MD Attn: Jake treviño,[address] [facility], [place], [address], [place] - [facility] 4 13:19:54 Problem Notes None recorded. Medical Equipment None Reported. [...] Not Available Vitals Date Recorded Body height Provider Name an d Address Organization Details Last Updated DateTime 01/31/2024 157.48 cm Jerilyn Lozano MA [facility] 01/31/2024 11:02:03 Date Recorded Body mass index (BMI) Body weight Heart rate Oxygen saturation Oxygen saturation in Arterial blood by Pulse oximetry Systolic blood pressure Diastolic blood pressure Provider Name and Address Organization Details Last Updated DateTime 30.7 kg/m2 32170.5 2 g 90 /min 96 % 96 % 118 mm[Hg] 70 mm[Hg] Surekha Hunter MA [facility] 11:15:11 Social History Question Answer Notes LastModified by Organizat ion Details LastModified Time Tobacco Smoking Status Never Smoker Fina Frias MA [facility], [facility] 08/15/2023 09:53:57 Do You Have An Advance [...] Diagnosis/Indication Diagnosis SNOMED-CT Code Diagnosis ICD10 Code [id number] MD [facility] ([facility]ult [facility]) [address] [place] [address] 01/31/2024 11:00:19 01/31/2024 11:54:06 Body mass index 30+ - obesity 866404785 Z68.30 Obesity 453872176 E66.9 Screening mammography 24 819674 Z12.31 Hyperlipidemia 22910146 E78.5 Long-term drug therapy 579683940 Z79.891 Health Concerns Section Related Observation LastModified by Organization Detai ls LastModified Time None Recorded Concern Status LastModified by Organization Details LastModified Time None Recorded Payers Encounter Date Sequence Insurance Name Policy Number Policy Patel Covered Member ID Patel Member ID Guarantor Name 01/31/2024 1 [place] Kirsten Montejo [id number] Kirsten Montejo 01/31/2024 2 [place] [id number] Kirsten Montejo [id number] Kirsten Montejo Notes Date Note Type Note Provider Name and Address Organization Details Recorded Time 01/31/2024 text/html urinary incontinence is doing fine. Dyslipidemia taking rosuvastatin without any problems rheumatoid arthritis relatively stable GERD no nausea no vomiting no heartburn Moris Wong MD Attn: Accounting[address] [facility], [place], [address], [facility] 02/03/2024 13:21:44 OBGyn Episode No OBEpisode recorded.
--- OUTSIDE RECORDS SUMMARY | 2024-02-16 12:26 | XMS_ITS ---
Author Organization 1 OF Tom ashford D[facility] Address [address] [facility] [address] [place] [address] Care Team Providers Care Clinical Applications Manager Name Role Phone Alex Alvarez Primary Care Provider Dakota Ocampo REASON FOR VISIT Nail fungus tx w/ oral terbinafine Encounters Encounter Location Date Provider Diagnosis [facility] [address] [address] 06/16/2023 Dakota Wharton Plan Of Treatment No Information Progress Notes * Don STEARNSOB: (73 yo F)Acc No.[id number]:06/16/2023 Progress Notes Patient:?Kirsten STEARNS Provider:?Summer Wharton DPM :1950???Age:72 Y???Sex:Female D ate:06/16/2023 Address:[address] [place], [place] [id number] Pcp:ME Ewa Subjective: * Chief Complaints: * ???1. Nail fungus tx w/ oral terbinafine. * Medical History:? Objective: * Vitals:? Assessment: Plan: * Treatment: * Images: * Electronic signature of Liban Wharton DPM on 02/16/2024 at 12:25 PM SALOONKEEPER Sign off status: Pending * Provider:?Summer Wharton DPM Date:?0 06/16/2023 Generated for Saira martinez/Sofia/Tomeritting on:?02/16/2024 12:25 PM SALOONKEEPER
== END 2024-02-16 09:39 | disposition home or self-care (01) ==
LOC: ANHIMG 09:40
PROVIDERS: PCP Internal Medicine; Visit Provider Internal Medicine
DX: Z12.31 Encounter for screening mammogram for malignant neoplasm of breast (principal)
CPT/HCPCS: 77063; 77067

== ENCOUNTER 2024-05-16 14:00 | Outpatient (CLI) | payer MEDICARE, BC, SELFPAY ==
--- NOTE | ~2024-05-16 | DEXA_ITS ---
Bone Density Report Name: NEVIN STEARNS Age: 73 Sex: Female Ethnicity: White Date of : 1950 Indication: postmenopausal; screening for osteoporosis; height loss; rheumatoid arthritis; Referring Provider: UNKNOWN, UNKNOWN Study: Bone densitometry was performed. Exam Date: May 16, 2024 Accession number: [id number] Bone Density: Region BMD T-score Z-score Classification AP Spine(L1-L4) 0.751 -2.7 -0.4 Osteoporosis Femoral Neck (Left) 0.631 -2.0 0.0 Osteopenia Total Hip (Left) 0.785 -1.3 0.4 Osteopenia Femoral Neck (Right) 0.550 -2.7 -0.7 Osteoporosis Total Hip (Right) 0.744 -1.6 0.0 Osteopenia Total Hip Mean 0.765 -1.5 0.2 Osteopenia World Health Organization criteria for BMD impression classify patients as: Normal (T-score at or above -1.0), Osteopenia (T-score between -1.0 and -2.5), or Osteoporosis (T-score at or below -2.5). 10-year Fracture Risk: FRAX not reported because: Some T-score for Spine Total or Hip Total or Femoral Neck at or below -2.5 Clinical Information Provided by Patient: Has rheumatoid arthritis Patient maximum height was 63 Menopause Age: 53 No regular weight bearing exercise Drinks caffeinated beverages Onset of menses at age 15 Number of children 3 Impression: The patient has osteoporosis, based on the Total Spine T-score. Discussion: INCREASED RISK OF FRACTURE. BONE DENSITY IS UNDESIRABLY LOW AT ONE OR MORE SKELETAL SITES, CONSISTENT WITH POSTMENOPAUSAL OSTEOPOROSIS. This patient's lowest T-score meets the World Health Organization's (WHO) criteria for osteoporosis at one or more sites (T-score -2.5 or below). In untreated patients, the risk of osteoporotic fracture increases approximately two-fold for each 1.0 SD decrease in T-score. Low bone density is not the only risk factor for fracture; also consider factors such as patient's age, frailty or poor health, risk of falling, risk of injury, previous osteoporotic fracture, family history of osteoporosis, cigarette smoking, low body weight, etc. Not everyone with low bone mineral density has osteoporosis; osteomalacia and other metabolic bone disorders should also be considered. Patients who have osteoporosis should be evaluated for specific diseases and conditions (secondary causes) that may cause or contribute to bone loss. The [place] [employer]ocrinologists (AACE) and National Osteoporosis Foundation (NOF) recommend pharmacologic intervention for all postmenopausal women whose T-score is in this range. The patient should follow a healthful lifestyle (good nutrition with adequate calcium and vitamin D, and appropriate weight-bearing exercise). Follow-Up: Consider a repeat BMD and Vertebral Fracture Assessment (VFA) exam in 2 years or sooner if medically necessary, to reassess this patient's status. Reported by: MAO on 05/16/2024 2:33:00 PM. Reviewed, dictated and finalized at location [facility]
--- OUTSIDE RECORDS SUMMARY | 2024-05-16 15:52 | XMS_ITS | Data Portability ---
Author Organization [facility] Catarina Address [address] [place] [address] Care Team Providers Care Test Driver Name Role Phone MORIS WONG Primary Care Provider Assessment Encounter Date Assessment Date Assessment LastModified by Organization Details LastModified Time 08/15/2023 08/15/2023 continue current therapy orthopedic referral diagnosis and assessment and plan discussed and questions referable those diagnosis discussed follow up with me in 4-6 months. Obtain old records to complete database for screenings and immunizations [email or web address] Not available 09/09/2023 22:20:27 01/31/2024 01/31/2024 healthy lifestyl e care instructions urinary incontinence continue with her medication dyslipidemia rosuvastatin. Rheumatoid arthritis hydroxychloroquine with meloxicam. GERD famotidine. Obtain Cologuard report obtain mammogram report follow up with me in 4-6 months continue current therapy [email or web address] Not available 02/03/2024 13:21:21 Plan of Treatment Reminders Order Date Submit Date Provider Last Modified By Organization Details Last Modified Time Details Appointments ANY 15 2024 10:00A Emerita Wong MD Not available Not available Not available Lab CBC w/ auto diff 2023 024 [facility], [address] [facility], [address], [place], [address], 02/15/2024 06:47:07 lipid panel, serum 2023 024 PATOKA [facility], [address] [facility], [address], [place], [address], 02/15/2024 06:47:05 CMP, serum or plasma 2023 024 PATOKA [facility], [address] [facility] [address], [address], [place], [address], 02/15/2024 06:47:06 Referral orthopedi c surgeon referral 2023 024 MAIKOL Walker MD, [facility], [place], [address], 09/05/2023 07:54:10 Procedures None recorded. Surgeries None recorded. Imaging MAMMO, screening , digital, bilateral 2023 [facility], [address] [address], [place], [address], 02/16/2024 11:16:52 Medication Orders None recorded. Patient TargetsNo targets recorded. Patient Instructions Encounter Date Encounter Id Patient Instructions Last Modified By Organization Details Last Modified Time 01/31/2024 [id number] A healthy lifestyle: care instructions [email or web address] Not available 01/31/2024 12:16:08 Reason for Referral Orthopedic Surgeon Referral for Pain of left shoulder joint Referring Physician: Moris Wong, Internal Medicine, Encounter Date: 08/15/2023 Results Created Date Observation Date Name Description Value Unit Range Abnormal Flag Note LastModifiedBy Organization Detail LastModifiedTime 02/14/2002/15/2024 LIPID PANEL , STAND SONDRA cholesterol, total 176 mg/dL <200 normal Not Available [facility] [address] [place], [address], 02/15/2024 06:47:05 02/14/20 24 02/15/2024 LIPID PANEL , STAND SONDRA HDL cholesterol 88 mg/dL > or = 50 normal Not Available [employer] [facility] [address] [place], [address], 02/15/2024 06:47:05 02/14/20 24 02/15/2024 LIPID PANEL , STAND SONDRA triglyceride s 133 mg/dL <150 normal Not Available [facility] [address] [place], [address], 02/15/2024 06:47:05 02/14/20 24 02/15/2024 LIPID PANEL , STAND SONDRA LDL-choleste rol 67 mg/dL _(justin c) normal Refer ence range : <100 Víctor able range <100 mg/dL for prima ry preve ntion ; <70 mg/dL for patie nts with CHD or diabe tic patie nts with > or = 2 CHD risk facto rs. LDL-C is now calcu lated using the Mona n-Hop kins omaru dirk n, which is a valid ated novel kelsio eben malik accur acdebby than the Fried veronica equat ion in the estim ation of LDL-C . Mona ashford SS et al. KAMALA. 2013; 310(1 9): 2061- 2068 (http ://ed ucati on.[employer]. com/f aq/FA Q164) Not Available [facility] [address] [address], [place], [address], 02/15/2024 06:47:05 02/14/20 24 02/15/2024 LIPID PANEL , STAND SONDRA chol/HDLC ratio 2.0 (calc ) <5.0 normal Not Available [facility] [address] [place], [address], 02/15/2024 06:47:05 02/14/20 24 02/15/2024 LIPID PANEL , STAND SONDRA non HDL cholesterol 88 mg/dL _(justin c) <130 normal For patie nts with diabe en plus 1 major ASCVD risk facto r, treat ing to a non-H DL-C goal of <100 mg/dL (LDL- C of <70 mg/dL ) is consi nicod a jonny solis optio n. Not Available [facility] [address] [place], [address], 02/15/2024 06:47:05 02/14/20 24 02/15/2024 COMPR EHENS DEONTE METAB OLIC PANEL glucose 85 mg/dL 65-99 normal Fasti ng refer ence inter gladis Not Available [address], [address], 02/15/2024 06:47:06 02/14/20 24 02/15/2024 COMPR EHENS DEONTE METAB OLIC PANEL urea nitrogen (BUN) 12 mg/dL 7-25 normal Not Available [address], [address], 02/15/2024 06:47:06 02/14/20 24 02/15/2024 COMPR EHENS DEONTE METAB OLIC PANEL creatinine 0.79 mg/dL 0.60-1 .00 normal Not Available [address] [place], [address], 02/15/2024 06:47:06 02/14/20 24 02/15/2024 COMPR EHENS DEONTE METAB OLIC PANEL eGFR 79 mL/mi n/1.7 3m2 > or = 60 normal Not Available [address], [address], 02/15/2024 06:47:06 02/14/20 24 02/15/2024 COMPR EHENS DEONTE METAB OLIC PANEL BUN/creatini ne ratio SEE NOTE: (calc ) 6-22 Not Repor laure: BUN and Creat inine are withi n refer ence range . Not Available [address], [address], 02/15/2024 06:47:06 02/14/20 24 02/15/2024 COMPR EHENS DEONTE METAB OLIC PANEL sodium 140 mmol/ L 135-14 6 normal Not Available [address], [address], 02/15/2024 06:47:06 02/14/20 24 02/15/2024 COMPR EHENS DOENTE METAB OLIC PANEL potassium 4.3 mmol/ L 3.5-5. 3 normal Not Available [address], [address], 02/15/2024 06:47:06 02/14/20 24 02/15/2024 COMPR EHENS DEONTE METAB OLIC PANEL chloride 102 mmol/ L 98-110 normal Not Available [address], [address], 02/15/2024 06:47:06 02/14/20 24 02/15/2024 COMPR EHENS DEONTE METAB OLIC PANEL carbon dioxide 29 mmol/ L 20-32 normal Not Available [address], [address], 02/15/2024 06:47:06 02/14/20 24 02/15/2024 COMPR EHENS DEONTE METAB OLIC PANEL calcium 9.8 mg/dL 8.6-10 .4 normal Not Available [address], [address], 02/15/2024 06:47:06 02/14/20 24 02/15/2024 COMPR EHENS DEONTE METAB OLIC PANEL protein, total 6.8 g/dL 6.1-8. 1 normal Not Available [address], [address], 02/15/2024 06:47:06 02/14/20 24 02/15/2024 COMPR EHENS DEONTE METAB OLIC PANEL albumin 4.1 g/dL 3.6-5. 1 normal Not Available [address], [address], 02/15/2024 06:47:06 02/14/20 24 02/15/2024 COMPR EHENS DEONTE METAB OLIC PANEL globulin 2.7 g/dL_ (calc ) 1.9-3. 7 normal Not Available [address], [address], 02/15/2024 06:47:06 02/14/20 24 02/15/2024 COMPR EHENS DEONTE METAB OLIC PANEL albumin/glob ulin ratio 1.5 (calc ) 1.0-2. 5 normal Not Available [address], [address], 02/15/2024 06:47:06 02/14/20 24 02/15/2024 COMPR EHENS DEONTE METAB OLIC PANEL bilirubin, total 0.6 mg/dL 0.2-1. 2 normal Not Available [address], [address], 02/15/2024 06:47:06 02/14/20 24 02/15/2024 COMPR EHENS DEONTE METAB OLIC PANEL alkaline phosphatase 51 U/L 37-153 normal Not Available [address], [address], 02/15/2024 06:47:06 02/14/20 24 02/15/2024 COMPR EHENS DEONTE METAB OLIC PANEL AST 20 U/L 10-35 normal Not Available [address], [address], 02/15/2024 06:47:06 02/14/20 24 02/15/2024 COMPR EHENS DEONTE METAB OLIC PANEL ALT 17 U/L 6-29 normal Not Available [address], [address], 02/15/2024 06:47:06 02/14/20 24 02/15/2024 CBC (INCL UDES DIFF/ PLT) white blood cell count 7.9 thous and/u L 3.8-10 .8 normal Not Available [address], [address], 02/15/2024 06:47:07 02/14/20 24 02/15/2024 CBC (INCL UDES DIFF/ PLT) red blood cell count 4.11 michell on/uL 3.80-5 .10 normal Not Available [address], [address], 02/15/2024 06:47:07 02/14/20 24 02/15/2024 CBC (INCL UDES DIFF/ PLT) hemoglobin 12.8 g/dL 11.7-1 5.5 normal Not Available [address], [address], 02/15/2024 06:47:07 02/14/20 24 02/15/2024 CBC (INCL UDES DIFF/ PLT) hematocrit 39.1 % 35.0-4 5.0 normal Not Available [address], [address], 02/15/2024 06:47:07 02/14/20 24 02/15/2024 CBC (INCL UDES DIFF/ PLT) MCV 95.1 fL 80.0-1 00.0 normal Not Available [address], [address], 02/15/2024 06:47:07 02/14/20 24 02/15/2024 CBC (INCL UDES DIFF/ PLT) MCH 31.1 pg 27.0-3 3.0 normal Not Available [address], [address], 02/15/2024 06:47:07 02/14/20 24 02/15/2024 CBC (INCL UDES DIFF/ PLT) MCHC 32.7 g/dL 32.0-3 6.0 normal For adult s, a sligh t decre ase in the calcu lated MCHC value (in the range of 30 to 32 g/dL) is most likel y not clini dilcia signi jose t; juve er, it shoul d be inter prete d with cauti on in corre latio n with other red cell elizabet eters and the patie nt's clini justin condi tion. Not Available [facility] [address] [place], [address], 02/15/2024 06:47:07 02/14/20 24 02/15/2024 CBC (INCL UDES DIFF/ PLT) RDW 12.8 % 11.0-1 5.0 normal Not Available [address], [address], 02/15/2024 06:47:07 02/14/20 24 02/15/2024 CBC (INCL UDES DIFF/ PLT) platelet count 205 thous and/u L 140-40 0 normal Not Available [facility] [address], [address], 02/15/2024 06:47:07 02/14/20 24 02/15/2024 CBC (INCL UDES DIFF/ PLT) MPV 12.3 fL 7.5-12 .5 normal Not Available [address], [address], 02/15/2024 06:47:07 02/14/20 24 02/15/2024 CBC (INCL UDES DIFF/ PLT) absolute neutrophils 5514 cells /uL 1500-7 800 normal Not Available [address], [address], 02/15/2024 06:47:07 02/14/20 24 02/15/2024 CBC (INCL UDES DIFF/ PLT) absolute lymphocytes 1612 cells /uL 850-39 00 normal Not Available [facility] [address], [address], 02/15/2024 06:47:07 02/14/20 24 02/15/2024 CBC (INCL UDES DIFF/ PLT) absolute monocytes 529 cells /uL 200-95 0 normal Not Available [facility] [address], [address], 02/15/2024 06:47:07 02/14/20 24 02/15/2024 CBC (INCL UDES DIFF/ PLT) absolute eosinophils 182 cells /uL 15-500 normal Not Available [facility] [address], [address], 02/15/2024 06:47:07 02/14/20 24 02/15/2024 CBC (INCL UDES DIFF/ PLT) absolute basophils 63 cells /uL 0-200 normal Not Available [facility] [address], [address], 02/15/2024 06:47:07 02/14/2002/15/2024 CBC (INCL UDES DIFF/ PLT) neutrophils 69.8 % normal Not Available [facility] [address], [address], 02/15/2024 06:47:07 02/14/20 24 02/15/2024 CBC (INCL UDES DIFF/ PLT) lymphocytes 20.4 % normal Not Available [facility] [address], [address], 02/15/2024 06:47:07 02/14/20 24 02/15/2024 CBC (INCL UDES DIFF/ PLT) monocytes 6.7 % normal Not Available [facility] [address], [address], 02/15/2024 06:47:07 02/14/20 24 02/15/2024 CBC (INCL UDES DIFF/ PLT) eosinophils 2.3 % normal Not Available [facility] [address], [address], 02/15/2024 06:47:07 02/14/20 24 02/15/2024 CBC (INCL UDES DIFF/ PLT) basophils 0.8 % normal Not Available [facility] [address], [address], 02/15/2024 06:47:07 02/02/20 05/18/2018 MAMMO , scree derek, digit al, bilat eral No observ ation record ed. [facility] [address] [facility] [address], [place], [address], 02/05/2024 11:06:14 02/16/20 24 02/16/2024 MAMMO , scree derek, digit al, bilat eral No observ ation record ed. [address] [facility] [address], [place], [address], 02/21/2024 14:46:18 02/16/20 24 02/16/2024 MAMMO , scree derek, digit al, bilat eral No observ ation record ed. [place] [address] [facility] [address], [place], [address], 02/22/2024 12:50:11 Result Notes None recorded. Problems Name Problem SNOMED Code Status Onset Date Resolution Date Notes Provider Name and Address Organization Details Recorded Time Pain of left shoulder joint 2824216846068 9109 Active 2023 Pascual Marsh MA [facility], [place] - [facility] 4 10:27:44 Hyperlipide lenny 67932099 Active 2023 Moris Wong MD Attn: Jake treviño,[address] [place], [address], [place] [facility] 4 22:19:42 Rheumatoid arthritis 13789723 Active 2023 Moris Wong MD Attn: Jake treviño,[address] [place], [address], [place] - [facility] 4 22:19:43 Urinary incontinenc e 542088591 Active 2023 Moris Wong MD Attn: Jake treviño,[address] [place], [address], [place] [facility] 4 22:19:44 Gastroesoph ageal reflux disease without esophagitis 091552559 Active 2023 Moris Wong MD Attn: Jake treviño,[address] [facility] [address], [place], [address], [facility] 13:19:54 Problem Notes None recorded. Procedures Surgical History None recorded. Imaging Results Imaging Date Name Status LastModified by Organiz ation Details LastModified Time 05/18/2018 MAMMO, screening, digital, bilateral completed [address], [place], [address], 02/05/2024 11:06:14 02/16/2024 MAMMO, screening, digital, bilateral completed [address], [place], [address], 02/21/2024 14:46:18 02/16/2024 MAMMO, screening, digital, bilateral completed [address], [place], [address], 02/22/2024 12:50:11 Procedure Notes None recorded. Medical Equipment None [...] 10 mg tablet TAKE 1 TABLET DAILY 2024 active Not Available Not Available Not Avai lable aspirin PRN active Not Available Not Avail able Not Available Vitals Date Recorded Body height Body mass index (BMI) Body weight Heart rate Oxygen saturation Oxygen saturation in Arterial blood by Pulse oximetry Systolic blood pressure Diastolic blood pressure Provider Name and Address Organization Details Last Updated DateTime 4 157.48 cm 30.3 kg/m2 91541.6 1 g 87 /min 97 % 97 % 118 mm[Hg] 72 mm[Hg] Fina Frias MA [facility] 4 09:56:09 Date Recorded Body height Provider Name an d Address Organization Details Last Updated DateTime 01/31/2024 157.48 cm Jerilyn Lozano MA [facility] 01/31/2024 11:02:03 Date Recorded Body mass index (BMI) Body weight Heart rate Oxygen saturation Oxygen saturation in Arterial blood by Pulse oximetry Systolic blood pressure Diastolic blood pressure Provider Name and Address Organization Details Last Updated DateTime 4 30.7 kg/m2 83449.5 2 g 90 /min 96 % 96 % 118 mm[Hg] 70 mm[Hg] Surekha Hunter MA [facility] 4 11:15:11 Social History Question Answer Notes LastModified by Organizat ion Details LastModified Time Tobacco Smoking Status Never Smoker Fina Frias MA null, [facility] 08/15/2023 09:53:57 Do You Have An Advance [...] Diagnosis/Indication Diagnosis SNOMED-CT Code Diagnosis ICD10 Code Diagnosis Note [id number] MD Ricky Alcazar (Adult Med) [address] [place] [address] 08/15/2023 09:43:15 08/15/2023 10:36:32 Pain of left shoulder joint 0358281298 6687689 M25.512 Hyperlipidemia 09935545 E78.5 Rheumatoid arthritis 698 76334 M06.9 Urinary incontinence 165 408557 R32 History of cerebrovascular accident 939387399 Z86.73 [id number] Moirs Wong MD [facility] ([facility]) [address] [place] [address] 01/31/2024 11:00:19 01/31/2024 11:54:06 Body mass index 30+ - obesity 251059763 Z68.30 Obesity 374573236 E66.9 Screening mammography 24 743229 Z12.31 Hyperlipidemia 75316840 E78.5 Long-term drug therapy 814694562 Z79.891 Health Concerns Section Related Observation LastModified by Organization Detai ls LastModified Time None Recorded Concern Status LastModified by Organization Details LastModified Time None Recorded Advance Directives Directive N: Payers Encounter Date Sequence Insurance Name Policy Number Policy Patel Covered Member ID Patel Member ID Guarantor Name 08/15/2023 1 [place] Kirsten Cholevik [id number] Kirsten Cholevik 08/15/2023 2 [place] [id number] Kirsten Cholevik [id number] Kirsten Cholevik 01/31/2024 1 [place] Kirsten Cholevik [id number] Kirsten Cholevik 01/31/2024 2 [place] [id number] Kirsten Cholevik [id number] Kirsten Cholevik Notes Date Note Type Note [...] head Moris Wong MD Attn: Accounting[address] [facility], [place], [address], [facility] - [facility] 09/09/2023 22:20:46 01/31/2024 text/html urinary incontin ence is doing fine. Dyslipidemia taking rosuvastatin without any problems rheumatoid arthritis relatively stable GERD no nausea no vomiting no heartburn Moris Wong MD Attn: Accounting[address] [facility], [place], [address], [facility] 02/03/2024 13:21:44 OBGyn Episode No OBEpisode recorded.
--- OUTSIDE RECORDS SUMMARY | 2024-05-16 15:52 | XMS_ITS | Clinical Summary ---
Author Organization [facility] Address [facility]ly [facility], [facility] [place] [address] Care Team Providers Care Mingler Operator Name Role Phone Alex Wong MD Primary Care Provider [phone] Allergies No known active allergies Medications rosuvastatin (CRESTOR) 20 MG tablet Take 1 tablet (20 mg total) by mouth daily. Active solifenacin succinate (VESICARE) 10 MG Tab Take 1 tablet (10 mg total) by mouth daily. Active hydroxychloroqu ine (PLAQUENIL) 200 MG tablet Take 2 tablets (400 mg total) by mouth daily. Active famotidine (PEPCID) 40 MG tablet Take 1 tablet (40 mg total) by mouth daily. Active Multiple Vitamin (MULTIVITAMIN ADULT OR) Take 1 tablet by mouth daily. Active Apoaequorin (PREVAGEN OR) Take 1 tablet by mouth daily. Active acetaminophen (TYLENOL) 325 MG tablet Take 2 tablets (650 mg total) by mouth every 6 (six) hours as needed for Pain. Active fluconazole (DIFLUCAN) 150 MG tablet Take 1 tablet (150 mg total) by mouth once a week. Active Social History Tobacco Use Types Packs/Day Years Used Date Smoking Tobacco: Never Smokeless Tobacco: Never Tobacco Cessation:Counseling Given: Not Answered Alcohol Use Standard Drinks/Week Comments Yes 1.7 (1 standard drink = 0.6 oz p ure alcohol) Comments No Sex and Gender Information Value Date Recorded Sex Assigned at Not on file Legal Sex Female 11:07 AM [employer] Gender Identity Not on file Sexual Orientation Not on file Last Filed Vital Signs Vital Sign Reading Time Taken Comments Blood Pressure 131/83 02/09/2023 3:51 PM [employer] Pulse 88 02/09/2023 3:51 PM [employer] Temperature 37.1 C (98.8 F) 02/09/2023 3:51 PM [employer] Respiratory Rate 16 02/09/2023 3:51 PM [employer] Oxygen Saturation 95% 02/09/2023 3:51 PM [employer] Inhaled Oxygen Concentration - - Weight 74 kg (163 lb 2.3 oz) 02/09/2023 8:00 AM [employer] Height 157.5 cm (5' 2 ) 02/09/2023 8:00 AM [employer] Body Mass Index 29.84 02/09/2023 8:00 AM [employer] Plan of Treatment Health Maintenance Due Date Last Done Comments Colorectal Cancer Screening Colonoscopy (10 Years) 1950 Hepatitis C 07/22/1969 DTaP, Tdap and Td Vaccines ( 1 - Tdap) 07/22/1970 Mammogram Screening 1991 Zoster Vaccines (1 of 2) 07/22/2001 Annual Medicare Wellness Visit 07/22/2016 Pneumococcal Vaccine: 65+ Years (1 of 1 - PCV) 07/22/2016 COVID-19 Vaccine (4 - 2023-2 5 season) 2023 04/01/2021, 06/05/2020, 05/12/2020 Influenza Adult (#1) 2023 RSV Immunization or 60+ Years (1 - 1-dose 75+ series) 07/22/2026 Dexa Scan (General) Completed 06/11/2020 Meningococcal B Vaccine Aged Out No l onger eligible based on patient's age to complete this topic Meningococcal Vaccine Aged Out No iveth harshad eligible based on patient's age to complete this topic RSV Immunizations Under 20 Months Aged Out No longer eligible b ased on patient's age to complete this topic Medical Devices Implanted Type Area Diabetes Clinical Manager Device Identifier Shelf Expiration Date Model / Serial / Lot Wire Fixation Fabi Stainless Steel L9 In Od.045 In 2 Tr - [id number] Implanted:Qty: 1 on 02/09/2023 by Dakota Wharton DPM at [facility] Wire Left: Foot [employer] [id number] S / / 2.5 X 18m Fixos Screw Implanted:Qty: 1 on 02/09/2023 by Dakota Wharton DPM at [facility] Left: Foot [employer] SV18 / / 2.5 X 10m Fixos Screw Implanted:Qty: 1 on 02/09/2023 by Dakota Wharton DPM at [facility] Left: Foot [employer] SV10 / / Easyclip [employer] Compression Staple Implanted:Qty: 1 on 02/09/2023 by Dakota Wharton DPM at [facility] Left: Foot [employer] 11/04/2027 [id number] / / [id number] [employer] Flowable Placental Tissue Matrix Implanted:Qty: 1 on 02/09/2023 by Dakota Wharton DPM at [facility] Left: Foot [employer] 05/01/2025 [id number] / / [id number] Toet[employer] Xpress Implanted:Qty: 1 on 02/09/2023 by Dakota Wharton DPM at [facility] Left: Foot [employer] [id number] 10/18/2024 [id number] / / [id number] Insurance MEDICARE [facility] Care Teams Mingler Operator Relationship Specialty Start Date End Date Alex Wong MD [address] [phone] PCP - General INTERNAL MEDICINE 01/31/23
--- OUTSIDE RECORDS SUMMARY | 2024-05-16 15:53 | XMS_ITS | Referral Summary ---
Author Organization [facility] Address [address] [place] [address] Care Team Providers Care Valve Mechanic Name Role Phone Unknown, Provider Primary Care Provider Unavaila ble Source Comments [facility],non-owned Affiliates and Associated Physician Practices is amultiple site organization consisting of ambulatory clinics and hospital sitesin [place], [place], [place] and [place]. This disclosure is being madepursuant to the Care Everywhere program and may not contain all information available regarding this patient. Last updated 17.[facility] Expa Social History Tobacco Use Types Packs/Day Years Used Date Smoking Tobacco: Never Assessed Sex and Gender Information Value Date Recorded Sex Assigned at Not on file Gender Identity Not on file Sexual Orientation Not on file Plan of Treatment Not on file Procedures Procedure Name Priority Date/Time Associated Diagnosis Comments DEXA BONE DENSITY AXIAL SKELETON Routine 06/11/2020 3:48 PM CDT Cutaneous lupus erythematosus CREST (calcinosis, Raynaud's phenomenon, esophageal dysfunction, sclerodactyly, telangiectasia) (HCC) Carpal tunnel syndrome, unspecified laterality from Last 3 Months or Most Recently Relevant to Health Maintenance Results * DEXA BONE DENSITY AXIAL SKELETON (06/11/2020 3:48 PM CDT) Anatomical Region Laterality Modality Mammography 06/11/2020 4:00 PM CDT Narrative 06/11/2020 4:01 PM CDT BONE MINERAL DENSITY STUDY INDICATION: Postmenopausal ovarian failure - osteoporosis screening. FINDINGS: The average bone mineral density from L1 to L4 is0.957 g/cm2. T-score is -1.9. Z-score is -0.5. The average bone mineral density of the total right hip is 0.836 g/cm2. T-score is -1.4. Z-score is -0.2. Bone mineral density of the right femoral neck is 0.789 g/sq cm with T score -1.8 and Z score -0.4. ASSESSMENT: This patient is considered osteopenic according to World Health Organization criteria. Bone density is between 10 and 25% below young normal. Fracture risk is mild. Treatment is advised. WORLD HEALTH ORGANIZATION DEFINITIONS OSTEOPENIA = -1 TO -2.5 SD BELOW T-SCORE. OSTEOPOROSIS = LESS THAN -2.5 SD BELOW T-SCORE *Reading Radiologist: Neva Lewis on 06/11/2020 at 4:01 PM Procedure Note Neva Lewis MD - 06/11/2020 BONE MINERAL DENSITY STUDY INDICATION: Postmenopausal ovarian failure - osteoporosis screening. FINDINGS: The average bone mineral density from L1 to L4 is0.957 g/cm2. T-score is -1.9. Z-score is -0.5. The average bone mineral density of the total right hip is 0.836 g/cm2. T-score is -1.4. Z-score is -0.2. Bone mineral density of the right femoral neck is 0.789 g/sq cm with T score -1.8 and Z score -0.4. ASSESSMENT: This patient is considered osteopenic according to World Health Organization criteria. Bone density is between 10 and 25% below young normal. Fracture risk is mild. Treatment is advised. WORLD HEALTH ORGANIZATION DEFINITIONS OSTEOPENIA = -1 TO -2.5 SD BELOW T-SCORE. OSTEOPOROSIS = LESS THAN -2.5 SD BELOW T-SCORE *Reading Radiologist: Neva Lewis on 06/11/2020 at 4:01 PM Jb Ocampo MD DEXA ORDERABLES from Last 3 Months or Most Recently Relevant to Health Maintenance Care Teams Valve Mechanic Relationship Specialty Start Date End Date Unknown, Provider PCP - General 06/11/20
--- OUTSIDE RECORDS SUMMARY | 2024-05-16 15:53 | XMS_ITS | Continuity of Care Document ---
Author Organization [facility] Address [address] [place] [address] [address] [place] [address] Phone Care Team Providers Care Forestry Workers Name Role Phone Darleen Parra Unavailable Unavailable Advance Directives Directive Yes / No Effective Date File Name No Information Encounters Encounter Description Practice Location Reason(s) For Visit Diagnoses Date Provider Providers Copied on Encounter [facility], [id number] [place] [address] [address], [place], [place], [id number], [place] tel:[phone] [facility] No Information Apr-0 2-200 1 Aida Morejon. [address] , [address], [place], [address], [place]. tel:[phone] Family History Family Member Type Diagnosis Age At Onset No Information Payers Payer name Insurance type Covered green party ID Authoriza tion(s) No Information Social History Type Description Quantity Date Captured Comments Sex Female Smoking Status No Information Chief Complaint And Reason For Visit No Information Reason For Referral Reason For Referral No Information History Of Present Illness Encounter Date Complaint History Of Prese nt Illness No Information Functional Status Date Functional Assessmen t No Information Instructions Date Instruction Additional Infor mation No Information Assessments Type Assessment Date No Information Patient Care Teams Name Effective Dates (start - stop) Status Members No Information
--- OUTSIDE RECORDS SUMMARY | 2024-05-16 15:53 | XMS_ITS | Clinical Summary ---
Author Organization [facility] Address [address] [place] [address] Care Team Providers Care Nuclear Technologist Name Role Phone Unknown, Provider Primary Care Provider Unavaila ble Source Comments [facility],non-owned Affiliates and Associated Physician Practices is amultiple site organization consisting of ambulatory clinics and hospital sitesin [place], [place], [place] and [place]. This disclosure is being madepursuant to the Care Everywhere program and may not contain all information available regarding this patient. Last updated 17.[facility] iversity Social History Tobacco Use Types Packs/Day Years Used Date Smoking Tobacco: Never Assessed Sex and Gender Information Value Date Recorded Sex Assigned at Not on file Gender Identity Not on file Sexual Orientation Not on file Plan of Treatment Health Maintenance Due Date Last Done Comments COLOGUARD (AGES 45-75) - COL ON CA SCREENING 1950 COLON MONITORING 1950 COLONOSCOPY - COLON CA SCREENING 1950 CT COLONOGRAPHY - COLON CA SCREENING 1950 Colorectal Cancer Screening 1950 FIT - COLON CA SCREENING 1950 FLEX SIG - COLON CA SCREENING 1950 LIPID TESTING 1950 MAMMOGRAM 1950 MEDICARE AWV 12 MONTHS 1950 HEPATITIS C SCREENING 07/18/1969 DTAP/TDAP/TD VACCINES (1 - Tdap) 07/22/1970 PNEUMOCOCCAL VACCINE 50+ (1 of 1 - PCV) 07/22/2001 ZOSTER VACCINE (1 of 2) 07/22/2001 COVID-19 VACCINE ( - 2023-2 5 season) 2023 INFLUENZA VACCINE (#1) 2023 DEPRESSION SCREENING 03/06/2024 Respiratory Syncytial Virus (RSV) Vaccine Pt: or over 60 yrs (1 - 1-dose 75+ series) 07/22/2026 BONE DENSITY TESTING Completed 06/11/2020 HEPATITIS B VACCINE Aged Out No longe r eligible based on patient's age to complete this topic HIB VACCINE Aged Out No longer eligi ble based on patient's age to complete this topic HPV VACCINE Aged Out No longer eligi ble based on patient's age to complete this topic MENINGOCOCCAL (Group B) VACC INE SHARED DECISION-MAKING Aged Out No longer eligibl e based on patient's age to complete this topic MENINGOCOCCAL GROUPS A/C/Y/W VACCINE Aged Out No longer eligible b ased on patient's age to complete this topic Procedures Procedure Name Priority Date/Time Associated Diagnosis [...] Recently Relevant to Health Maintenance Care Teams Nuclear Technologist Relationship Specialty Start Date End Date Unknown, Provider PCP - General 06/11/20
--- OUTSIDE RECORDS SUMMARY | 2024-05-16 15:53 | XMS_ITS | CONTINUITY OF CARE DOCUMENT ---
Author Name lis hays Address Unknown Organization [facility] Address [address] [place] [address] Phone [phone] Care Team Providers Care Model Making Supervisor Name Role Phone lis hays Unavailable Unavailable INSURANCE PROVIDERS Payer name Policy type / Coverage type Termo red libertarian ID [employer] insurance company [id number]
--- OUTSIDE RECORDS SUMMARY | 2024-05-16 15:53 | XMS_ITS ---
Author Organization 1 OF Tom ashford [facility] Address [address] [address] [address] [place] [address] Care Team Providers Care Dance Coach Name Role Phone Alex Alvarez Primary Care [...] Date Provider Diagnosis 1 OF Tom Wharton [facility] [address] [address] 06/09/2023 Dakota Wharton Hallux valgus (acquired), left foot M20.12 ; Surgical aftercare, musculoskeletal system Z47.89 ; Hammer toe of left foot M20.42 and Onychomycosis B35.1 Assessments Encounter Date Diagnosis (ICD Code) Assessment Notes Treatment Notes Treatment Clinical Notes Section Notes 06/09/2023 Hallux valgus (acquired), left foot (ICD-10 - M20.12) Discussed the recurrence of the hallux valgus deformity and bunion cushion with gel computer numerical control programmer was dispensed to pt today and pt [...] valgus deformity and bunion cushion with gel computer numerical control programmer was dispensed to pt today and pt [...] Sub-Category Detail Notes NAIL PROCEDURES: Nail avulsion (16990): Discusse d procedure and associated recovery period [...] with aseptic technique. (A4550) Progress Notes * Danie STEARNSSindiOB: 2 (72 yo F)Acc No.[id number]:06/09/2023 Progress Note Patient: Kirsten KONG Provider: Tom Wharton DPM :1950 A ge:72 Y S ex:Female Date:06/09/2023 Address:[address] [place] [address] Pcp:Alex Wong [place] Subjective: * Chief Complaints: * L T foot scarf bunionectomy * HPI: Emerita Mejia assisting with visit:: HPI/Rooming: Mayra gomez reason for visit:: Date of surgery: 04/12/2022. Surgery procedures performed: L eft foot: scarf bunionectomy, Abebe osteotomy of hallux, 2nd toe hammertoe repair by PIPJ arthrodesis, 2nd MPJ open reduction of dislocation, 3rd MPJ capsulotomy. Pain level: L eft foot: 3/10 a t worst, 0/10 t sobeida. 72 y/o female RTO 17 weeks s/p [...] reports there has not been much improvement. S he denies any ASE with the medication. * Medical History: * Medications: T akingPrevagen Neuriva Hydroxychloroquine Sulfate Solifenacin Succinate Rosuvastatin Calcium [...] reviewed and reconciled with the patient * Allergies: N .K.D.A.no[Allergies Verified] Objective: * Vitals: W t:160lbs, Wt-k.57 kg, Ht: 62 in, BMI:29.26Index. * Examination: G eneral Examination: Constitutional / Appearance: N o acute distress , Well nourished, Appropriate personal hygiene. Mental status: C ooperative, Oriented to person, place and time, Mood and affect: normal, Judgement and intellect: normal with appropriate response to questions. Shoes today: t arlene shoe. Exam unchanged from prior visit: T he LT 2nd toe continues to exhibit a [...] nails of both feet appear clear of fungus.. D iagnostic Studies: : X-rays of left lower extremity: 3 views of left foot: , Fixation appears stable with no change in position, evidence of loosening or fracture., No change in alignment of osteotomy is noted, Bone consolidation appears excellent. Hallux valgus with bony prominence of the medial 1st MTH is noted. , Otherwise no other acute changes compared to prior x-rays.? Assessment: * Assessment: 1. H allux valgus (acquired), left foot - M20.12 2 . S [facility] aftercare, musculoskeletal system - Z47.89 (Primary) 3 . H ammer toe of left foot - M20.42 4 . O nychomycosis - B35.1 Plan: * Treatment: 2. O nychomycosis Start Terbinafine HCl Tablet, 250 MG, 1 tablet, Orally, Once a day, 14 days, 14 Tablet, Refills 0;?Start Fluconazole Tablet, 150 MG, 3 tablets all at once, Orally, once a week, 14 days, 6, Refills 0. Notes: Pt was advised that fungal infection is likely too dense to be penetrated by medication. Pt was advised that infection can likely only be cleared by removal of the nail followed by 2 week treatment of fluconazole, and then 2 week treatment of terbinafine. Pt will f/u with the office as scheduled for P/O. * Procedures: N AIL PROCEDURES:: Nail avulsion (93372): D iscussed procedure and associated recovery period as well [...] wound and post-op instructions were dispensed and discussed.. STERILE TRAY & INSTRUMENTS U tilization of sterile tray and instrumentation along with aseptic technique. (A4550). * Procedure Codes: 7 3630 X-RAY FOOT (3 views), [place]: [place] [address] REMOVAL OF NAIL PLATE, Modifiers: T5 * Follow Up: 4 Weeks * Images: Drawin R T foot photo * Sign off status: Completed true * Provider: Tom Wharton DPM Date: 0 06/09/2023 Generated for Saira martniez/Sofia/Tomeritting on: 0 05/16/2024 03:53 PM CDT History and Physical Notes * HPI (History [...]
--- OUTSIDE RECORDS SUMMARY | 2024-05-16 15:53 | XMS_ITS | Patient Health Summary ---
Author Organization [facility] Address [address] [place] [address] Care Team Providers Care Fire Patroller Name Role Phone Unknown, Provider Primary Care Provider Unavaila ble Note from [facility],non-owned Affiliates and Associated Physician Practices is amultiple site organization consisting of ambulatory clinics and hospital sitesin [place], [place], [place] and [place]. This disclosure is being madepursuant to the Care Everywhere program and may not contain all information available regarding this patient. Last updated 17.[facility] Social History Tobacco Use Types Packs/Day Years Used Date Smoking Tobacco: Never Assessed Sex and Gender Information Value Date Recorded Sex Assigned at Not on file Gender Identity Not on file Sexual Orientation Not on file Procedures * DEXA BONE DENSITY AXIAL SKELETON(Performed 06/11/2020) Performed for Cutaneous lupus erythematosus, CREST (calcinosis, Raynaud's phenomenon, esophageal dysfunction, sclerodactyly, telangiectasia) (HCC), Carpal tunnel syndrome, unspecified laterality Results * DEXA BONE DENSITY AXIAL SKELETON [...] 4:01 PM Jb Ocampo MD DEXA ORDERABLES Care Teams Fire Patroller Relationship Specialty Start Date End Date Unknown, Provider PCP - General 06/11/20
--- OUTSIDE RECORDS SUMMARY | 2024-05-16 15:53 | XMS_ITS | Data Portability ---
Author Organization [place] [facility] [employer], Main Office Address [address] [place] [address] Care Team Providers Care District Administrative Assistant Name Role Phone MORIS WONG Primary Care Provider [phone] MORIS WONG Referring Provider Assessment Encounter Date Assessment Date Assessment LastModified by Organization Details LastModified Time 07/06/2022 07/06/2022 Medical problems have been discussed with wellness is been discussed immunizations and screenings ordered where patient agreeable and on time continue with hydroxychloroquine and tramadol for her rheumatoid arthritis hyperlipidemia rosuvastatin overactive bladder VESIcare follow-up in 4 months blood work ordered Not available 07/09/2022 15:31:15 01/11/2023 01/11/2023 EKG reviewed nor mal sinus rhythm consider anteroseptal AR she has got no symptoms probably lead placement we will continue current therapy follow-up with me in 6 months as long as her blood work is fine then she is cleared for surgery [email or web address] Not available 01/14/2023 12:24:00 09/04/2023 09/04/2023 73-year-old femmeron mcbride presents for evaluation of her left shoulder. She reports pain that has been going on for years, getting progressively worse. It is worse specially when moving and lifting her arm overhead. She has trouble reaching the top of her head. She currently rates her pain as 7/10. She is right-hand dominant. She is retired. She has a history of cutaneous lupus but was told she did not have any rheumatologic issues or inflammatory arthritis otherwise. She has not had any treatments. Review of systems per patient questionnaire Physical exam: She has tenderness over the anterior and lateral shoulder. Elevation to 90. External rotation 20, internal rotation to back pocket. She has 5/5 internal external rotation, 4/5 elevation, sensation intact to light touch throughout. X-rays of the shoulder were reviewed, demonstrating glenohumeral arthritis with [id number] and inferior osteophyte. On the axial view, she has posterior wear of the glenoid She has shoulder osteoarthritis. We will begin with conservative management with a course of meloxicam and physical therapy. We will see her back as needed after the course of treatment. We discussed the next step would be to consider a cortisone injection in the shoulder. She is in agreement with the plan. [email or web address] Not available 09/04/2023 23:27:00 Plan of Treatment Reminders Order Date Submit Date Provider Last Modified By Organization Details Last Modified Time Details Appointments None recorded. Lab lipid panel, serum [address] (Lab), [address] [place] [address], [address], 4 18:45:35 CMP, serum or plasma 2022 023 [facility] (Lab), [address] [place] [address], [address], 3 13:05:17 CBC w/ auto diff [address] (Lab), [address] [place] [address], [address], 4 18:45:35 urinalysis, dipstick [address], [address] [place] [address], [address], 3 17:03:24 urinalysis, dipstick 2022 023 [email or web address] [facility] [place], [address] [place] [address], [address], [address], 3 16:11:00 CBC w/ auto diff 2022 023 [facility] (Lab), [address] [place], [address], 3 11:48:03 urinalysis, microscopic 2022 023 [facility] (Lab), [address] [place], [address], 3 11:48:04 lipid panel, serum 2022 023 [facility] (Lab), [address] [place], [address], 3 11:48:03 CMP, serum or plasma 2022 023 [facility] (Lab), [address] [place], [address], 3 11:48:03 Referral physical therapist referral - EVAL AND TREAT 2023 024 [facility] [place], [address] [facility], [place], [address], 4 12:02:45 Procedures cystoscopy (PROC) 2022 023 [email or web address] Not available 3 10:07:52 Surgeries None recorded. Imaging XR, shoulder, 2 or more view 2023 024 [facility] [place], [address] [facility], [place], [address], 4 13:11:09 electrocard iogram 2022 023 [email or web address] s[facility] [address], [address] [facility] [address], [place], [address], 3 14:10:18 Medication Orders Mobic 15 mg tablet 2023 024 [email or web address] [id number], [address] , [place], [place], [id number], 4 13:07:10 solifenacin 10 mg tablet 2022 023 [facility], [address] [place] [address], [address], 15:29:52 Patient TargetsNo targets recorded. Patient Instructions Encounter Date Encounter Id Patient Instructions Last Modified By Organization Details Last Modified Time 07/06/2022 [id number] dementia rating scale-2* [email or web address] Not available 07/06/2022 11:54:26 alcohol misuse* [email or web address] Not available 07/06/2022 11:54:26 depression screening* [email or web address] Not available 07/06/2022 11:54:26 Timed Up and Go test (TUG)* Not available 07/06/2022 11:54:26 multi-dimensiona l health assessment questionnaire* [email or web address] Not available 07/06/2022 11:54:26 Personalized [facility] lt Plan and Screening Recommendations Advance Directives - Do you have one? No Advance Directives - Do we have your advance directive on file in your health record? Primary Prevention/Interven tion (prevents or decreases the chance of common diseases from occurring) Smoking Risk: Non Smoker Alcohol Misuse Screening: Negative Weight: Appropriate Overwei ght continue your current weight loss efforts try to lose 5% of your body weight try to lose 10% of your body weight Physical activity: Need more exercise/physical activity Nutrition: Good Average Fall Risk (screened today): Low Vaccines Pneumococcal: Ordered Recommended today Recommended today, but you have declined Influenza: Ordered Recommended today Recommended today, but you have declined Chronic Disease Risks Stroke: Low Risk Intermediate Risk I have no recommendations Act josephine diagnosis, Continue current treatment plan Heart Attack: Low risk Intermediate Risk I have no recommendations Act josephine diagnosis, Continue current treatment plan Clogging of the Arteries: Low risk Intermediate Risk I have no recommendations Act josephine diagnosis, Continue current treatment plan Diabetes: Low Risk I have no recommendations Secondary Prevention/Interven tion (detects treatable diseases before they may cause symptoms, disability, or ) Breast Cancer Screening with mammogram: Cervical/Uterine/Ov ramón Cancer Screening: No screening necessary Osteoporosis Screening: Your next DEXA in: Ordered Recomme nded today Date Screening Last Performed: Colon Cancer Screening: Colonoscopy Fecal Occult Blood Cologuard (DNA stool test) Date Screening Last Performed: __2020 Eye Disease Screening: Dementia Risk: Low I have no recommendations Depression Screening: Negative [email or web address] Not available 07/06/2022 11:01:01 Reason for Referral Physical Therapist Referral for Pain of left shoulder joint EVAL AND TREAT Referring Physician: Saud Walker, Orthopedic Surgery, Encounter Date: 09/04/2023 Results Created Date Observation Date Name Description Value Unit Range Abnormal Flag Note LastModifiedBy Organization Detail LastModifiedTime 07/28/1907/27/2022 BUN/B LOOD UREA NITRO GEN BUN 10 mg/dL 8-19 Not Available [facility] (Lab) [address] [place], [address], 07/27/2022 13:26:10 07/28/1907/27/2022 CREAT ININE creatinine 0.82 mg/dL 0.66-1 .25 Not Available [facility] (Lab) [address] [place], [address], 07/27/2022 13:26:16 07/28/1907/27/2022 CREAT ININE GFR >60 Refer ence Range : [place] [facility] GFR Healt hy Adult : >60 mL/mi n/1.7 3 m2 Chron ic Kidne y Disea se: 15-60 mL/mi n/1.7 3 m2 Kidne y Failu re: <15/m L/min /1.73 m2 www.n iddk. nih.g ov The MDRD study equat ion has not been valid ated in child guadalupe <18 years of age; pregn ant women ; the elder ly >85 years of age; or in some racia l or ethni c subgr oups, such as Hispa nics. Outsi de the valid ated elizabet eters , estim ated GFR is less accur ate, requi ring clini justin judgm ent on a case- by-ca se basis . Clini justin inter preta tion for other races and ages must be made by the clini iris. The MDRD study equat ion has not been valid ated for the evalu ation of serum creat inine relat ed to nutri mely l statu s or medic ation usage . For perso ns <18 years of age, a pedia tric GFR calcu lator is avail able on the [facility] websi te: https ://ww w.kid angelica.o rg/pr ofess ional s/kdo qi/gf r_cal culat or Not Available [facility] (Lab) [address] [place] [address], [address], 07/27/2022 13:26:16 08/23/19 23 08/22/2022 urina lysis , dipst ick Leukocytes (reference range: negative shakila/ l) Negati ve Not Available [facility] [address], [address], 08/22/2022 15:43:56 08/23/19 23 08/22/2022 urina lysis , dipst ick Nitrite (reference rage: negative mg/dl) negati ve Not Available [address], [address], [address], 08/22/2022 15:43:56 08/23/19 23 08/22/2022 urina lysis , dipst ick Urobilinogen (reference range: 0.2-1 mg/dl) 0.2 Not Available [facility] [address], [address], [address], 08/22/2022 15:43:56 08/23/19 23 08/22/2022 urina lysis , dipst ick Protein (reference range: negative mg/dl) Negati ve Not Available [address], [address], 08/22/2022 15:43:56 08/23/19 23 08/22/2022 urina lysis , dipst ick pH (reference range: 5-7) 5.5 Not Available [place] [address], [place], [address], 08/22/2022 15:43:56 08/23/19 23 08/22/2022 urina lysis , dipst ick Blood (reference range: negative Jay Jay/ l) Hemoly zed: Trace Not Available [address], [address], 08/22/2022 15:43:56 08/23/19 23 08/22/2022 urina lysis , dipst ick Specific [place] (reference range: 1.005-1.030) 1.015 Not Available [address], [address], 08/22/2022 15:43:56 08/23/19 23 08/22/2022 urina lysis , dipst ick Ketone (reference range: negative mg/dl) Negati ve Not Available [address], [address], 08/22/2022 15:43:56 08/23/19 23 08/22/2022 urina lysis , dipst ick Bilirubin (reference range: negative mg/dl) Negati ve Not Available [address], [address], 08/22/2022 15:43:56 08/23/19 23 08/22/2022 urina lysis , dipst ick Glucose (reference range: negative mg/dl) Negati ve Not Available [address], [place] [address], [place], [address], 08/22/2022 15:43:56 08/23/19 23 08/22/2022 urina lysis , dipst ick Appearance Clear Not Available [address], [address], 08/22/2022 15:43:56 08/23/19 23 08/22/2022 urina lysis , dipst ick Color Yellow Not Available [address], [address], 08/22/2022 15:43:56 10/04/19 23 10/03/2022 urina lysis , dipst ick Leukocytes (reference range: negative shakila/ l) Negati ve Not Available [address], [address], 10/03/2022 16:36:36 10/04/19 23 10/03/2022 urina lysis , dipst ick Nitrite (reference rage: negative mg/dl) negati ve Not Available [address], [address], 10/03/2022 16:36:36 10/04/19 23 10/03/2022 urina lysis , dipst ick Urobilinogen (reference range: 0.2-1 mg/dl) 0.2 Not Available [address], [address], 10/03/2022 16:36:36 10/04/19 23 10/03/2022 urina lysis , dipst ick Protein (reference range: negative mg/dl) Negati ve Not Available [address], [place] [address], [place], [address], 10/03/2022 16:36:36 10/04/19 23 10/03/2022 urina lysis , dipst ick pH (reference range: 5-7) 6.0 Not Available [address], [address], 10/03/2022 16:36:36 10/04/19 23 10/03/2022 urina lysis , dipst ick Blood (reference range: negative Jay Jay/ l) Non-He molyze d: Trace Not Available [place] [address], [place], [address], 10/03/2022 16:36:36 10/04/19 23 10/03/2022 urina lysis , dipst ick Specific [place] (reference range: 1.005-1.030) 1.020 Not Available [address], [address], 10/03/2022 16:36:36 10/04/19 23 10/03/2022 urina lysis , dipst ick Ketone (reference range: negative mg/dl) Negati ve Not Available [address], [address], 10/03/2022 16:36:36 10/04/19 23 10/03/2022 urina lysis , dipst ick Bilirubin (reference range: negative mg/dl) Negati ve Not Available [facility], [address] , [place], [address], 10/03/2022 16:36:36 10/04/19 23 10/03/2022 urina lysis , dipst ick Glucose (reference range: negative mg/dl) Negati ve Not Available [address], [address] , [place], [address], 10/03/2022 16:36:36 10/04/19 23 10/03/2022 urina lysis , dipst ick Appearance Clear Not Available [address], [address] , [place], [address], 10/03/2022 16:36:36 10/04/19 23 10/03/2022 urina lysis , dipst ick Color Yellow Not Available [address], [address] , [place], [address], 10/03/2022 16:36:36 07/28/19 23 07/27/2022 CT, abdom en + pelvi s, w/ contr ast [facility] [address] [place] [address] Patien t Name: KIRSTEN NEWELL Access ion #: [id number] Sex: F : 1950 9 Locati on: RAD Attend ing Physic melisa: BETO WONG Orderi Physic melisa: BETO WONG Exam Date: 023 12:24 PM Exam Name: CT ABDOME N PELVIS W Admitt ing Diagno sis(es ): RADIOL OGY REPORT - FINAL EXAM: CT ABDOME N PELVIS W HISTOR Y: 72-yea r-old female with left flank pain, hematu marco, urinar y freque ncy, histor y of urolit hiasis , prior cholec ystect bassem. COMPAR GUSTAVO: None availa ble. TECHNI QUE: Helica l CT images of the abdome n and pelvis were perfor med with 900 [address] and 100 mL Isovue [address] Sagitt al and german l reform atted images were obtain ed. This CT exam was perfor med using 1 or more of the follow ing dose reduct ion techni ques: Automa laure exposu re contro l, adjust ment of the mA and/or kv accord ing to patien t size, or the use of iterat josephine recons tructi on techni ques. FINDIN GS: Page 1 of 3 [facility] Stephanie t Name: KIRSTEN NEWELL Access ion #: [id number] Sex: F : 1950 9 Exam Date: 023 12:24 PM Exam Name: CT ABDOME N PELVIS W Admitt ing Diagno sis(es ): CT abdome n: There is inters titial scarri ng in the lung bases. There is a left lower lobe triang ular 5 mm noncal cified pulmon remi nodule (image 14, series 201). There is a round 7 mm noncal cified pulmon remi nodule in the left lower lobe more inferi mary ann (image 25, series 201). There is a small fatty umbili justin hernia . The liver, spleen , gallbl adder, kidney s, and adrena l glands are unrema rkable . There are puncta te calcif icatio ns in the pancre atic body. No abdomi nal aortic aneury sm or dissec tion. CT pelvis : No abnorm al bowel dilata tion, free air, free fluid, or suspic ious adenop athy. There is fecal retent ion in the colon. The append ix is not dilate d. There is focal wall thicke derek of the inferi or aspect of the urinar y bladde r on the left (image s 140-14 3, series 201). There is asymme try of the pubic symphy sis, which may be develo pmenta l or due to old trauma . There may be an old healed fractu re of the right inferi or pubic ramus (image 152, series 201). There is thorac olumba r dextro scolio sis and lower lumbar levosc oliosi s. There is advanc ed lumbar degene rative disc diseas e L1-L4. IMPRES AHSAN: 1. Mild focal urinar y bladde r wall thicke derek inferi mary ann on the left which may be due to focal inflam mation , scarri ng, or malign yisel. Recomm end urolog y consul tation if not alread y obtain ed. 2. Subcen timete r left lower lobe noncal cified pulmon remi nodule s. Recomm end follow -up accord ing to [facility] guidel n[facility]. 3. Puncta te calcif icatio ns in the pancre atic body may be due to chroni c pancre atitis . No eviden ce of acute pancre atitis . 4. Fecal retent ion in the colon sugges tive of consti pation . 5. Advanc ed lumbar degene rative disc diseas e. 6. No eviden ce of bowel obstru ction, urolit hiasis , acute append icitis , or other acute proces s in the abdome n or pelvis . Page 2 of 3 [facility] t Name: KIRSTEN NEWELL Access ion #: [id number] Sex: F : 1950 9 Exam Date: 12:24 PM Exam Name: CT ABDOME N PELVIS W Admitt ing Diagno sis(es ): Create d and electr onical ly signed by: Saud joy MD Signed Date: 1:51 PM (CT) Dictat ed by: Saud joy MD DD: 1:51 PM (CT) DT: 1:51 PM (CT) Page 3 of 3 [facility] (Imaging) [address] [place] [address], [address], 08/05/2022 14:32:16 11/08/20 23 elect rocar diogr am No observ ation record ed. [email or web address] [facility] [place] [address], [place], [address], 01/11/2023 11:03:59 01/12/20 23 01/11/2023 elect rocjaleesa diogr am No observ ation record ed. BARCODE Not Available 2022 11:19:56 09/04/19 24 XR, shoul mishel, 2 or more view No observ ation record ed. [email or web address] s_g[facility] [address] [facility], [place], [address], 09/04/2023 10:44:21 Result Notes None recorded. Problems Name Problem SNOMED Code Status Onset Date Resolution Date Notes Provider Name and Address Organization Details Recorded Time Hyperlipid emia 09295153 Active 2022 Not Available [facility] 3 01:52:51 Overactive urinary bladder 852593506 Active 2022 Not Available [facility] 3 01:52:51 Left flank pain 081451804 Active 2022 Not Available [facility] 3 01:52:51 CT of abdomen abnormal 2868860630082 9107 Active 2022 Not Available [facility] 3 01:52:51 Microscopi c hematuria 977578479 Active 2022 Not Available [facility] 3 01:52:51 Pain of left shoulder joint 1005078974870 9109 Active 2023 NANCY Everett, [place] [facility] 4 10:43:54 Pain in throat 082651162 Active Not Available [facility] 3 01:52:51 On examinatio n - hoarseness Active Not Available [facility] 3 01:52:51 Urinary incontinen ce 023014039 Active 2019 Not Available [facility] 3 01:52:51 Blood glucose outside reference range 540863199 Active Not Available [facility] 3 01:52:51 Seronegati ve rheumatoid arthritis 835637041 Active 2018 Not Available [facility] 3 01:52:51 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 2020 Not Available [facility] 3 01:52:51 Vitamin D deficiency 43172686 Active 2018 Not Available [facility] 3 01:52:51 Dyslipidem ia 241038757 Active Not Available [facility] 3 01:52:51 Dizziness 131749860 Active Not Available [facility] 3 01:52:51 Acute urinary tract infection 787728136 Active 2021 Not Available [facility] 3 01:52:51 Cough 99771724 Active Not Available [facility] 3 01:52:51 Hoarse 72678020 Active Not Available [facility] 3 01:52:51 Tinnitus 82511126 Active Not Available [facility] 3 01:52:51 Problem Notes None recorded. Procedures Surgical History Date Name Laterality Status Provider Name and Address Organization Details Recorded Time 10/04/19 23 Cystoscopy (female) completed Jb Hurtado MD [address] [place] [address], [address], [facility] [employer] 10/03/2022 17:02:27 07/07/19 23 Medicare Wellness CPT Code, subsequent completed Susan Velazquez RN [facility] [employer] [facility] 07/06/2022 10:54:42 06/12/19 21 Most Recent Bone Density completed Not Available [facility] 05/04/2022 03:18:47 other completed Not Available [facility] 03/2022 03:18:52 procedure on vein completed Not Available [facility] 05/04/2022 03:18:52 Orthopedic Surgery completed Not Available [facility] 05/04/2022 03:18:52 Tonsillectomy completed Not Available [facility] 05/04/2022 03:18:52 Tubal Ligation completed Not Available [facility] 05/04/2022 03:18:52 Imaging Results Imaging Date Name Status LastModified by Organization Details LastModified Time 07/27/2022 CT, abdomen + pelvis, w/ contrast completed [facility] (Imaging) [address] [facility], [place], [address], 08/05/2022 14:32:16 01/11/2023 electrocardiogram completed [email or web address] [facility] [address] [facility], [place], [address], 01/11/2023 11:03:59 01/11/2023 electrocardiogram completed BARCODE Informa tion not available 01/11/2023 11:19:56 09/04/2023 XR, shoulder, 2 or more view completed [email or web address] [facility] [place] [address] [facility], [place], [address], 09/04/2023 10:44:21 Procedure Notes None recorded. Medical Equipment None Reported. Allergies No known drug allergies Medications Name Sig Start Date Stop Date Status Note LastModified by Organization Details LastModified Time azithromy nancy 250 mg tablet TAKE 2 TABLETS (500 MG) BY ORAL ROUTE ONCE DAILY FOR 1 DAY THEN 1 TABLET (250 MG) BY ORAL ROUTE ONCE DAILY FOR 4 DAYS 09/03 completed Not Available Not Available Not Available fluconazo le 150 mg tablet TAKE 3 TABLETS BY MOUTH ALL AT ONCE ONCE A WEEK 09/03 completed Not Available Not Available Not Available hydrocodo ne 5 mg-acetam inophen 325 mg tablet TAKE 1 TO 2 TABLETS BY MOUTH EVERY 6 HOURS AFTER SURGERY NEEDED FOR MODERATE PAIN AFTER SURGERY OR PAIN 09/03 completed Not Available Not Available Not Available meloxicam 15 mg tablet TAKE 1 TABLET BY MOUTH EVERY DAY active Not Available Not Available No t Available famotidin e 40 mg tablet TAKE 1 TABLET BY MOUTH ONCE DAILY active Not Available Not Available No t Available prednison e 5 mg tablet TAKE 1 TO 3 TABLETS BY MOUTH ONCE DAILY 07/06 completed Not Available Not Available Not Available doxycycli ne monohydra te 100 mg tablet TAKE 1 TABLET BY MOUTH EVERY 12 HOURS FOR 7 DAYS 09/03 completed Not Available Not Available Not Available tramadol 50 mg tablet TAKE 1 TABLET BY MOUTH 4 TIMES DAILY NEEDED FOR PAIN 09/03 completed Not Available Not Available Not Available mycopheno late mofetil 500 mg tablet TAKE 2 TABLETS BY MOUTH TWICE DAILY 09/03 completed Not Available Not Available Not Available Macrobid 100 mg capsule Take 1 capsule every 12 hours by oral route for 5 days. 07/06 completed Not Available Not Available Not Available meloxicam 7.5 mg tablet TAKE 1 TABLET BY MOUTH ONCE DAILY 07/06 completed Not Available Not Available Not Available oxycodone -acetamin ophen 5 mg-325 mg tablet 06/30 completed Not Available Not Available Not Available terbinafi ne HCl 250 mg tablet TAKE 1 TABLET BY MOUTH DAILY FOR 14 DAYS 09/03 completed Not Available Not Available Not Available methotrex ate sodium 2.5 mg tablet TAKE 3 TO 6 TABLETS BY MOUTH ONCE A WEEK 07/06 completed Not Available Not Available Not Available tamsulosi n 0.4 mg capsule 06/30 completed Not Available Not Available Not Available cephalexi n 500 mg capsule Take 1 capsule 3 times a day by oral route as directed for 10 days. 05/02 completed Not Available Not Available Not Available pantopraz ole 40 mg tablet,de layed release TAKE 1 TABLET BY MOUTH ONCE DAILY FOR 30 DAYS active Not Available Not Available No t Available triamcino lone acetonide 0.1 % topical ointment active Not Available Not Available Not Available folic acid 1 mg tablet TAKE 1 TABLET BY MOUTH ONCE DAILY 09/03 completed Not Available Not Available Not Available monteluka st 10 mg tablet TAKE 1 TABLET BY MOUTH ONCE DAILY 09/03 completed Taking PRN Not Available Not Available Not Available hydroxych loroquine 200 mg tablet TAKE 2 TABLETS BY MOUTH ONCE DAILY active Not Available Not Available No t Available methylpre dnisolone 4 mg tablets in a dose pack FPD 11/16 completed Not Available Not Available Not Available Vitamin D2 1,250 mcg (50,000 unit) capsule Take 1 capsule every week by oral route. active Not Available Not Available No t Available cefdinir 300 mg capsule 06/30 completed Not Available Not Available Not Available naproxen 500 mg tablet TAKE 1 TABLET BY MOUTH EVERY 12 HOURS FOR AT LEAST 14 DAYS AFTER SURGERY 09/03 completed Not Available Not Available Not Available Vitamin D3 25 mcg (1,000 unit) capsule qd 12/24 completed Not Available Not Available Not Available rosuvasta tin 20 mg tablet TAKE 1 TABLET FOUR TIMES A WEEK active Not Available Not Available No t Available solifenac in 5 mg tablet Take 1 tablet every day by oral route. 07/06 completed changed to 10mg Not Available Not Available Not Available solifenac in 10 mg tablet TAKE 1 TABLET DAILY active Not Available Not Available No t Available Tylenol active Not Available Not Avail able Not Available Centrum 2020 active Not Available Not Available Not Avai lable QNASL 80 mcg/actua tion nasal aerosol spray [place] 2 sprays every day by intranas al route for 30 days. 05/15 completed Not Available Not Available Not Available Vitals Date Recorded Body height Body mass index (BMI) Body weight Body temperature Heart rate Oxygen saturation Oxygen saturation in Arterial blood by Pulse oximetry Systolic blood pressure Diastolic blood pressure Provider Name and Address Organization Details Last Updated DateTime 3 157.48 cm 32 kg/m2 54935.6 6 g 97.4 [degF] 64 /min 98 % 98 % 124 mm[Hg] 80 mm[Hg] Francheska Hastings RN [facility] [employer] [facility] 3 10:41:06 Date Recorded Pain severity - 0-10 verbal numeric rating [Score] - Reported Provider Name and Address Organization Details Last Updated DateTime 07/06/2022 0 Susan Velazquez RN [facility] [employer] [facility] 07/06/2022 10:54:58 Date Recorded Body height Heart rate Body temperature Body mass index (BMI) Body weight Oxygen saturation Oxygen saturation in Arterial blood by Pulse oximetry Systolic blood pressure Diastolic blood pressure Provider Name and Address Organization Details Last Updated DateTime 3 157.48 cm 81 /min 98.2 [degF] 30.5 kg/m2 50803.9 3 g 94 % 94 % 138 mm[Hg] 76 mm[Hg] Luz Silver MA [facility] [employer] [facility] 3 15:43:32 Date Recorded Body height Provider Name an d Address Organization Details Last Updated DateTime 10/03/2022 157.48 cm NANCY Moeller [place] [facility] [place] [employer] [facility] 10/03/2022 16:35:04 Date Recorded Heart rate Body temperature Body mass index (BMI) Body weight Oxygen saturation Oxygen saturation in Arterial blood by Pulse oximetry Systolic blood pressure Diastolic blood pressure Provider Name and Address Organization Details Last Updated DateTime 96 /min 98.1 [degF] 30.2 kg/m2 70924.7 4 g 96 % 96 % 113 mm[Hg] 66 mm[Hg] Luz Silver MA [facility] [employer] [facility] 16:49:06 Date Recorded Body height Body mass index (BMI) Body weight Body temperature Heart rate Systolic blood pressure Diastolic blood pressure Provider Name and Address Organization Details Last Updated DateTime 157.48 cm 30 kg/m2 56330.1 5 g 98.2 [degF] 86 /min 122 mm[Hg] 72 mm[Hg] Liliane Son [facility] [employer] [facility] 10:08:47 Date Recorded Body height Body mass index (BMI) Body weight Provider Name and Address Organization Details Last Updated DateTime 09/04/2023 157.48 cm 30.2 kg/m2 66504.74 g Sonia Fischer, [facility] [employer] [facility] 09/04/2023 10:41:47 Social History Question Answer Notes LastModified by Organization Details LastModified Time Tobacco Smoking Status Never Smoker Chary hermosillo, [facility] [employer] [facility] 01/11/2023 09:58:21 Do You Have An Advance Directive? No [id number] Information not available 05/04/2022 What Is Your Level Of Alcohol Consumption? Occasional MIGRATION.[id number] [id number] Information not available 05/04/2022 Are You Blind Or Do You Have Difficulty Seeing? No Information not available 01/11/2023 What Is Your Level Of Caffeine Consumption? Moderate MIGRATION.0301 [id number] Information not available 05/04/2022 How Much Tobacco Do You Chew? None MIGRATION.0301 [id number] Information not available 05/04/2022 In The 14 Days Before Symptom Onset, Have You Had Close Contact With A Laboratory-conf mariza MCDERMOTT-19 While That Case Was Ill? No Information not available 01/11/2023 In The 14 Days Before Symptom Onset, Have You Had Close Contact With A Person Who Is Under Investigation For COVID-19 While That Person Was Ill? No Information not available 01/11/2023 Are You Deaf Or Do You Have Serious Difficulty Hearing? No Information not available 01/11/2023 What Type Of Diet Are You Following? REGULAR MIGRATION.[id number] [id number] Information not available 05/04/2022 Which Illicit Or Recreational Drugs Have You Used? None Information not available 01/11/2023 Do You Or Have You Ever Used E-cigarettes Or Vape? Never Used Electronic Cigarettes Information not available 01/11/2023 What Is The Highest Grade Or Level Of School You Have Completed Or The Highest Degree You Have Received? [id number] Information not available 01/11/2023 What Is Your Occupation? Retired Information not available 01/11/2023 Have There Been Any Changes To Your Family Or Social Situation? No Information not available 01/11/2023 What Is The Fluoride Status Of Your Home? Fluoridated Information not available 01/11/2023 Are There Any Guns Present In Your Home? No Information not available 01/11/2023 Do You Use Insect Repellent Routinely? No Information not available 01/11/2023 Where Do You Live? SingleLevelHouse Information not available 01/11/2023 Do You Have A Medical Power Of Tennis Camp Instructor? No Information not available 01/11/2023 What Was The Date Of Your Most Recent Tobacco Screening? 09/04/2023 Not Needed-nev er Smoked Information not available 09/04/2023 Do You Have Any Pets? No Information not available 01/11/2023 What Is Your Relationship Status? [id number] [id number] Information not available 05/04/2022 Do You Use Your Seat Belt Or Car Seat Routinely? Yes Information not available 01/11/2023 Do You Have Smoke And Carbon Monoxide Detectors In Your Home? Yes Not Carbon Monoxide Information not available 01/11/2023 Are You Passively Exposed To Smoke? No Information not available 01/11/2023 Do You Or Have You Ever Used Smokeless Tobacco? Never Used Smokeless Tobacco MIGRATION.030 [id number] Information not available 05/04/2022 Are There Any Smokers In Your House? No Information not available 01/11/2023 How Much Tobacco Do You Smoke? No MIGRATION.030 [id number] Information not available 05/04/2022 Do You Feel Stressed (tense, Restless, Nervous, Or Anxious, Or Unable To Sleep At Night)? VA4626-7 Information not available 01/11/2023 Do You Use Any Illicit Or Recreational Drugs? No Information not available 01/11/2023 Do You Use Sunscreen Routinely? Yes Information not available 01/11/2023 Has Tobacco Cessation Counseling Been Provided? No Information not available 01/11/2023 How Many Years Have You Smoked Tobacco? 0 Information not available 01/11/2023 Have You Recently Traveled Abroad? No Information not available 01/11/2023 Do You Have Any Dietary Restrictions? No Information not available 01/11/2023 Do You Or Have You Ever Used Any Other Forms Of Tobacco Or Nicotine? No Information not available 01/11/2023 Sex: Female Functional Status Question Answer Note LastModified by Organizat ion Details LastModified Time Do you have difficulty walking or climbing stairs? Yes Stairs sometimes Information not available 01/11/2023 Do you have transportation difficulties? No Information not available 01/11/2023 Are you able to walk? YESWOREST Information not available 01/11/2023 Do you have difficulty doing errands alone? No Information not available 01/11/2023 Are you able to care for yourself? Yes Information n ot available 01/11/2023 Do you have difficulty dressing or bathing? No Information not available 01/11/2023 What is your exercise level? None MIGRATION.02381 [id number] Information not available 05/04/2022 Mental Status Question Answer Note LastModified by Organization D etails LastModified Time Do you have difficulty concentrating, remembering or making decisions? No Information no t available 01/11/2023 Family History Relationship Description Onset Age of this Age Resolved Age Notes LastModified by Organization Details LastModified Time Mother Malignant tumor of breast [email or web address] Not available 2023 10:19:24 Father Repair of heart valve 81 [email or web address] Not available 03/2023 10:19:24 Sister Malignant tumor of breast [facility] Not available 09/04/2023 10:19:24 Sister Chronic obstructive pulmonary disease [email or web address] Not available 2023 10:19:24 Sister Diabetes mellitus MIGRATION.493 [id number] Not available 05/04/2022 03:18:55 Brother Kidney disease MIGRATION.869 [id number] Not available 05/04/2022 03:18:55 Unspecified Relation Cystic fibrosis levi malik Not available 09/04/2023 10:19:24 Medical History Condition Response NERVE DISEASE N BLINDNESS N RHEUMATIC FEVER N KIDNEY STONES Y BLADDER PROBLEMS N MRSA N OTHER # 1 N POLIO N LUNG DISEASE/DISORDER N RADIATION / CHEMOTHERAPY N COPD N Other # 2 N BLOOD DISEASES N SURGERY N EAR OR HEARING PROBLEMS Y MUMPS N SHINGLES N BOWEL PROBLEMS N DEPRESSION (INCLUDING POST ) N STROKE/TIA N ULCERS N BENIGN PROSTATIC HYPERPLASIA N MEASLES Y HYPOTENSION N MYOCARDIAL INFARCTION N OBESITY N GERD/NAUSEA N ANEURYSM N URINARY/BLADDER/KIDNEY PROBLEMS N CORONARY ARTERY DISEASE (CAD) N ADDICTION CONCERNS N ENDOMETRIOSIS N Impotence N USE OF BLOOD THINNERS N SKIN PROBLEMS N GASTROINTESTINAL DISORDER N PERIPHERAL VASCULAR DISEASE N MUSCLE,JOINT OR BONE PROBLEMS N GASTROINTESTINAL BLEEDING N BLOOD CLOTS N ASTHMA N CATARACTS N ERECTILE DYSFUNCTION N VARICOSITIES N GI PROBLEMS N Low Testosterone N INFERTILITY N AIDS/HIV N CHEMOTHERAPY / RADIATION N LIVER DISEASE N MALE HYPOGONADISM N HYPERTENSION N Deficiency Y TOURETTE'S N ANXIETY DISORDER N BLOOD TRANSFUSION N ANEMIA/BLOOD DISORDER N CHRONIC EAR INFECTIONS N BRONCHITIS N TUBERCULOSIS N GLAUCOMA N FOOT PROBLEM N DIVERTICULITIS N CHICKENPOX Y SLEEP APNEA N INFECTIOUS DISEASE N HEART ARRHYTHMIA N PROSTATE N INSOMNIA N HIGH CHOLESTEROL / HYPERLIPIDEMIA Y HYPERTHYROIDISM N EYE PROBLEMS N NEUROLOGICAL PROBLEMS N EDEMA N CHRONIC PAIN SYNDROME N HYPOTHYROIDISM N CAROTID BLOCKAGE N CONSTIPATION N BACK / NECK PROBLEMS N HAVE YOU BEEN HOSPITALIZED OR [facility] IN THE PAST YEAR ? N ATHEROSCLEROSIS N BREAST PROBLEMS N DIALYSIS N ECZEMA N OSTEOPOROSIS N ARTHRITIS Y APPENDICITIS N DIABETES, TYPE N BAD TEETH N ENT N HEARTBURN / REFLUX N AUTISM SPECTRUM DISORDER (ASD) N HEPATITIS / LIVER DISEASE N GOUT N SLEEP DISORDER N ALZHEIMER'S DISEASE N Brain Problems N HERPES N DEMENTIA N HEADACHES/MIGRAINES N SEIZURES/EPILEPSY N VASCULAR DISEASE N PACEMAKER N Blood Disorder N DIZZINESS N HEART DISEASE/HEART PROBLEMS N KIDNEY DISEASE N MULTIPLE SCLEROSIS N CARDIAC ARRHYTHMIA N CANCER: SPECIFY N ATRIAL FIBRILLATION N Gall Stones N PULMONARY EMBOLISM N AUTOIMMUNE DISEASE N Gynecological History Statement/Question Response Date of Last Pap Date of Last Mammogram 10/28/2020 Date of Last Colonoscopy Most Recent Bone Density 06/11/2020 Obstetrics History GPAL:G 0 P 0 0 0 0 Immunizations Vaccine Type Date Status Note Provider Nam e and Address Organization Details Recorded Time COVID-19, mRNA, LNP-S, PF, 30 mcg/0.3 mL dose 04/01/2021 completed Not Available [facility] 3 01:52:51 COVID-19, mRNA, LNP-S, PF, 30 mcg/0.3 mL dose 06/05/2020 completed Not Available [facility] 3 01:52:51 COVID-19, mRNA, LNP-S, PF, 30 mcg/0.3 mL dose 05/12/2020 completed Not Available [facility] 3 01:52:51 Past Encounters Encounter ID Performer Location Encounter Start Date Encounter Closed Date Diagnosis/Indication Diagnosis SNOMED-CT Code Diagnosis ICD10 Code Diagnosis Note [id number] [facility] [address] [facility] [address] [address] 06/10/2020 00:00:00 06/10/2020 10:15:09 [id number] [facility] [address] [facility] [address] [address] 12/23/2020 00:00:00 01/10/2021 13:50:20 [id number] [facility] [address] [place], [place] [address]., [address] [address] 06/16/2021 00:00:00 07/17/2021 17:55:03 [id number] [facility] [address] [place] [address] [place] [address] 01/04/2022 00:00:00 01/04/2022 12:41:01 [id number] Moris Wong MD [facility] Internal Med [facility] [address] [facility], [place] [address] 07/06/2022 10:23:17 07/06/2022 11:04:28 Adult health examination 690324587 Z00.00 Screening for disorder 323571066 Z13.9 Hyperlipidemia 86806033 E78.5 Overactive urinary bladder 292338791 N32.81 Long-term drug therapy 589528446 Z79.899 Vitamin D deficiency 347 39267 E55.9 Urinary incontinence 165 781424 R32 Seronegati ve rheumatoid arthritis 792098921 M06.00 Dyslipidemia 543282540 E 78.5 [id number] Jb Hurtado MD [facility] Urology [place] [address] 1 08/22/2022 15:23:42 08/22/2022 16:09:53 Microscopic hematuria 103785332 R31.29 Some irritative symptoms, suggested try no caffeine. As for ? bladder mass will need to set up cysto in office. [id number] Jb Hurtado MD [facility] [place] [address] 10/03/2022 16:20:54 10/03/2022 17:04:10 Microscopic hematuria 554073694 R31.29 No bladder mass, normal cysto. Discussed options for OAB, try stopping vesicare and try samples of myrbetriq. Went over side effects. She will call if wants rx. get off caffeine. [id number] Moris Wong MD [facility] Internal Med [facility] [address] [facility], [address] [address] 01/11/2023 09:55:20 01/11/2023 11:11:07 Pre-surgery testing 796070561 Z01.89 Dyslipidemia 925161194 E 78.5 Long-term drug therapy 411496010 Z79.899 Seronegati ve rheumatoid arthritis 268918798 M06.00 Urinary incontinence 165 225094 R32 Vitamin D deficiency 347 67301 E55.9 [id number] Saud Walker MD [facility] [place] [address] [place] [address] 09/04/2023 10:18:03 09/04/2023 12:41:47 Pain of left shoulder joint 4600561434 7044412 M25.512 Health Concerns Section Related Observation LastModified by Organization Detai ls LastModified Time None Recorded Concern Status LastModified by Organization Details LastModified Time None Recorded Advance Directives Directive N: Payers Encounter Date Sequence Insurance Name Policy Number Policy Patel Covered Member ID Patel Member ID Guarantor Name 07/06/2022 1 [place] Kirsten S [place] [id number] Kirsten S [place] 07/06/2022 2 [place] [id number] Kirsten S [place] [id number] Kirsten S [place] 08/22/2022 1 [place] Kirsten S [place] [id number] Kirsten S [place] 08/22/2022 2 [place] [id number] Kirsten S [place] [id number] Kirsten S [place] 10/03/2022 1 [place] Kirsten S [place] [id number] Kirsten S [place] 10/03/2022 2 [place] [id number] Kirsten S [place] [id number] Kirsten S [place] 01/11/2023 1 [place] Kirsten S [place] [id number] Kirsten S [place] 01/11/2023 2 [place] [id number] Kirsten S [place] [id number] Kirsten S [place] 09/04/2023 1 [place] Kirsten S [place] [id number] Kirsten S [place] 09/04/2023 2 [place] [id number] Kirsten S [place] [id number] Kirsten Montejo Notes Date Note Type Note Provider Name and Address Organization Details Recorded Time 3 text/html Hyperlipidemia trying to follow a low-fat diet patient is taking her rosuvastatinOveractive bladder would like to try something forSeronegative rheumatoid arthritis kind of a problem for her now uses tramadol p.r.n. for painRhinitis is doing fine Moris Wong MD [address], [address], [place], [address], [employer] 07/09/2022 15:32:53 3 text/html Bladder MassReported bypatient.Notes:Pt presented with complaints of urinary urgency, frequency and some left lower back pain. She saw her medical md who said ua was abnormal, CT showed normal upper tracts and ? mass in bladder. She denies dysuria, hematuria, stream is fine , has some double voiding, She has hx of stones 5 yr ago, no hx of utis , she drinks coffee and tea. CT reveiwed. Jb Hurtado MD [address], [place], [address], [employer] 08/22/2022 16:11:04 3 text/html Bladder MassReported bypatient.Notes:Pt presented with complaints of urinary urgency, frequency and some left lower back pain. She saw her medical md who said ua was abnormal, CT showed normal upper tracts and ? mass in bladder. She denies dysuria, hematuria, stream is fine , has some double voiding, She has hx of stones 5 yr ago, no hx of utis , she drinks coffee and tea. CT reveiwed10/03/22Pt has cut back some on caffeine. no dysuria or hematuria, has dry mouth on vesicare. Here for cysto Jb Hurtado MD [address], [place], [address], [employer] 10/03/2022 17:03:53 3 text/html Hyperlipidemia trying to follow a low-fat diet patient is taking her rosuvastatinOveractive bladder a little betterSeronegative rheumatoid arthritis kind of a problem for her now uses tramadol p.r.n. for painRhinitis is doing fineGoing to have podiatry surgery Moris Wong MD [address] [facility], [facility] [address], [place], [address], [facility] 01/14/2023 12:25:03 OBGyn Episode No OBEpisode recorded.
--- OUTSIDE RECORDS SUMMARY | 2024-05-16 15:53 | XMS_ITS | Patient Health Record ---
Author Organization 1 OF Tom [facility]ford [facility] Address [address] [facility] [place] [address] Care Team Providers Care Equipment Tech Name Role Phone Alex Alvarez Primary Care [...] Problem Status W/U Status Risk Notes Problem [id number] Hallux valgus (acquired), left foot (M20.12) Active confirmed Problem Hallux valgus of left foot (2450114152) Hallux valgus of left foot (M20.12) Active confirmed Problem 906269920 Hallux valgus, right (M20.11) Active confirmed Problem 889088134 Hammer toe of right foot (M20.41) Active confirmed Problem 934729081 Hammer toe of left foot (M20.42) Active confirmed Problem Acquired hammer toe of right foot (2065005271790608) Hammertoe of right foot (M20.41) Active confirmed Problem 6968172733874171 Arthritis of foot, left (M19.072) Active confirmed Problem 1457797801247880 Arthritis of foot, right (M19.071) Active confirmed Problem Acquired left hallux valgus due to metatarsus primus varus (disorder) (41278039347728975) Acquired hallux valgus with metatarsus primus varus of left foot (Q66.212) Active confirmed Problem 98554523001910112 Rheumatoid arthritis involving both feet, unspecified whether rheumatoid factor present (M06.9) Active confirmed Vital Signs Height 62 in 07/07/2023 Weight 160 lbs 07/07/2023 BMI 29.26 kg/m2 07/07/2023 Encounters Encounter Location Date Provider Diagnosis 1 OF Tom Wharton [facility] [address] [place] [address] 06/09/2023 Dakota Wharton Hallux valgus (acquired), left foot M20.12 ; Surgical aftercare, musculoskeletal system Z47.89 ; Hammer toe of left foot M20.42 and Onychomycosis B35.1 1 OF Tom Wharton [facility] [address] [place] [address] 07/07/2023 Dakota Wharton Hallux valgus (acquired), left [...] valgus deformity and bunion cushion with gel robotics software engineer was dispensed to pt today and pt [...] office as scheduled for P/O. 07/07/2023 Onychomycosis (ICD-10 - B35.1) Advised no [...] know if she wants to move forward. 06/09/2023 Other Plan Of Treatment No Information Insurance Providers Payer Name Payer Address Payer Phone Subscriber Number Group Number Insured Name Patient Relationship to Insured Coverage Start Date Coverage End Date Medicare [address] [facility] [place] [id number] Kirsten Montejo Self - patient is the insured [facility] [address] [address] [place], [place] [id number] Kirsten Montejo Self - patient is the insured Medical (General) History Medical History History ICD Code arthritis, hyperlipidemia, r heumatoid arthritis, vein problems, Lupus- cutaneous Surgical History Surgery Date(Month/Year) RT leg vascular sx - venous
--- OUTSIDE RECORDS SUMMARY | 2024-05-16 15:54 | XMS_ITS ---
Author Organization [facility] Address [address] [address] Care Team Providers Care Fire Crew Specialist Name Role Phone Alex Alvarez Primary Care Provider Dakota Ocampo REASON FOR VISIT Nail fungus tx w/ oral terbinafine Encounters Encounter Location Date Provider Diagnosis 1 OF [facility] [address] [address] 06/16/2023 Dakota Wharton Plan Of Treatment No Information Progress Notes * Don STEARNSOB: 2 (73 yo F)Acc No.[id number]:06/16/2023 Progress Notes Patient: Kirsten KONG Provider: Tom Wharton DPM :1950 A ge:72 Y S ex:Female Date:06/16/2023 Address:[address] [place], [place] [id number] Pcp:ME Ewa Subjective: * Chief Complaints: * 1 . Nail fungus tx w/ oral terbinafine. * Medical History: Objective: * Vitals: Assessment: Plan: * Treatment: * Images: * Electronic signature of Liban Wharton DPM on 05/16/2024 at 03:53 PM CDT Sign off status: Pending * Provider: Tom Wharton [facility] Date: 0 06/16/2023 Generated for Printi ng/Faxing/eTransmitting on: 0 05/16/2024 03:53 PM CDT
--- OUTSIDE RECORDS SUMMARY | 2024-05-16 15:54 | XMS_ITS ---
Author Organization 1 OF [facility] Address [address] [place] [address] Care Team Providers Care Putty Mixer And Applier Name Role Phone Alex Alvarez Primary Care Provider Dakota Ocampo Allergies No Known Allergies REASON FOR VISIT [...] Problem Status W/U Status Risk Notes Problem 544923077 Hallux valgus, right (M20.11) Active confirmed Problem Acquired hammer toe of right foot ([id number]) Hammertoe of right foot (M20.41) Active confirmed Vital Signs Height 62 in 07/07/2023 Weight 160 lbs 07/07/2023 BMI 29.26 kg/m2 07/07/2023 Encounters Encounter Location Date Provider Diagnosis 1 OF [facility] [address] [place] [address] 07/07/2023 Dakota Wharton Hallux valgus (acquired), left [...] * Don STEARNSOB: 2 (72 yo F)Acc No.[id number]:07/07/2023 Progress Notes Patient: Kirsten KONG Provider: Tom Wharton DPM :1950 A ge:72 Y S ex:Female Date:07/07/2023 Address:[address] [place] [address] Pcp:Alex Wong [place] Subjective: * Chief Complaints: * S /p LT bunionectomy * HPI: Emerita Mejia assisting with visit:: HPI/Rooming: Humphrey gomez reason for visit:: Date of surgery: 1 04/12/2022. Surgery procedures performed: L eft foot: scarf bunionectomy, Abebe osteotomy of hallux, 2nd toe hammertoe repair by PIPJ arthrodesis, 2nd MPJ open reduction of dislocation, 3rd MPJ capsulotomy. Pain level: L eft foot:, she still has some discomfort where her scar is, she rates this as . 72 y/o female RTO 5 months s/p LEFT foot scarf bunionectomy. At the last appt the pt was dispensed a gel bunion cushion and advised to continue with PT. . She reports that she still has some discomfort from her sx scar and if she extends the toe it will hurt but the PT definitely helped. T sobeida the pt reports that she does wear this cushion and it is effective at keeping her toes from pressing together uncomfortably but the cushion itself is not the most comfortable, she only wears this with tennis shoes. Pt states she still is concerned about her LT 2nd t oe overlapping the 3rd toe, she has tried [...] medications as directed, which she tolerated well, a nd she is having no issues in healing. She still hs a small scab but she expected this. * Medical History: * Surgical History: R T leg vascular sx - venous * Hospitalization/Major Diagno stic Procedure: * Medications: T akingPrevagen Neuriva Hydroxychloroquine Sulfate [...] with appropriate response to questions. Shoes today: T zhang flip flops. Exam unchanged from prior visit: R T hallux nail bed appears healed with stable [...] plantar forefoot and no plantar callus noted. ? The RT foot exhibits a severe hallux valgus and 2nd digit hammertoe contracture with erythema noted to dorsal 2nd toe PIPJ but no callus. There mild tenderness with palpation of the plantar 2nd MPJ.. Assessment: * Assessment: 1. H allux valgus (acquired), left foot - M20.12 (Primary) 2 . H allux valgus, right - M20.11 3 . H ammertoe of right foot - M20.41 4 . O nychomycosis - B35.1 5 . T oe pain, right - M79.674 Plan: * Treatment: 2. H allux valgus, right Notes: Surgery was discussed but patient advised she may have less than ideal results similar to her LT foot due to limitation of procedures we can perform due to poor bone quality secondary to RA. Patient will hold off on surgery as long as possible. 3. O nychomycosis Notes: Advised no further medication needed at this point but patient should monitor the nail as it grows back and contact our office if any concerns of fungus, otherwise no follow up needed for this condition. 4. T oe pain, right Notes: Discussed tx options for bunion pain [...] know if she wants to move forward. * Procedure Codes: * Preventive Medicine: Counseling: C are goal follow-up plan: Above Normal BMI Follow-up L ifestyle education regarding diet Screenings: F ALL RISK SCREENING Fall Risk Assessment: N o falls in the past year * Follow Up: C ontact office if condition fails to improve , otherwise RTO PRN with any other concerns * Images: * Sign off status: Completed true * Provider: Tom Wharton DPM Date: 07/07/2023 Generated for Saira martinez/Sofia/Tomeritting on: 05/16/2024 03:53 PM CDT History and Physical [...]
== END 2024-05-16 14:01 | disposition home or self-care (01) ==
LOC: ANHIMG 14:00
PROVIDERS: PCP Internal Medicine
DX: M81.0 Age-related osteoporosis without current pathological fracture (principal); M85.89 Other specified disorders of bone density and structure, multiple sites
CPT/HCPCS: 77080